=== PATIENT | female | born 1945 | race Two or more races ===

== ENCOUNTER 2017-09-11 18:26 | Inpatient (IN) | payer MEDICARE, BC ==
[~2017-09-11] VITALS: Ht 152.4 cm; Wt 63.5 kg
[~2017-09-11 18:26] MED LIST: ALLO100T PO; ASPI1CPM PO; CA C1TAB71 PO; DICY20TA11 PO; DICY20TA32 PO; GABA-534 PO; LEVE250T2 PO; MEGA RED; NEBI10TA2 PO; ONDA4TAB8 PO; PANCREAZE 21,01 EACH PO; TRAM50TA2 PO
--- NOTE | 2017-09-11 18:55 | NUR ---
BB FAMILY FOR FEELING WEAK, SHORT OF BREATH, POPOR APETITE. A/OX 4. BREATHING EVEN AND UNLABORED. NO SOB. VITALS STABLE. SAFETY AND COMFORT MEASURES IN PLACE. AWAITING MD ORDERS.
[2017-09-11] MEDS ORDERED: IV NS 0.9% 1,000 ML BAG IV ONE ×2 (19:00→21:30)
--- NOTE | 2017-09-11 19:05 | NUR ---
NEW IV STARTED ON LFA, 20 G.
--- NOTE | 2017-09-11 19:10 | NUR ---
FLAVORING OIL FILTERER AT BEDSIDE FOR BLOOD DRAW.
--- NOTE | 2017-09-11 19:19 | NUR ---
PATIENT MEDICATED PER MD ORDERS.
--- NOTE | 2017-09-11 19:30 | NUR ---
REPORT GIVEN TO SIDDHARTH ARSHAD FOR GENEVIEVE.
--- NOTE | 2017-09-11 19:30 | NUR ---
LAB AT BEDSIDE FOR BLOOD DRAW.
--- NOTE | 2017-09-11 19:30 | NUR ---
RECEIVED REPORT FROM JEANCARLOS LAZO
[2017-09-11 20:01] LABS: EOSINOPHILS # (AUTO) 0.1 /CMM (0.0-0.7); EOSINOPHILS % (AUTO) 0.7 % (0.0-6.0); LYMPHOCYTES # (AUTO) 2.1 /CMM (0.8-4.8)
--- NOTE | 2017-09-11 20:02 | NUR ---
MAIL FORWARDING SYSTEM MARKUP CLERK AT BEDSIDE.
[2017-09-11 20:05] LABS: BASOPHILS # (AUTO) 0.4 /CMM (0.0-0.2); BASOPHILS % (AUTO) 4.1 % (0.0-2.0); HEMATOCRIT 46 % (33-45); HEMOGLOBIN 15.6 g/dL (11.5-14.8); LYMPHOCYTES % (AUTO) 19.1 % (20.0-44.0); MEAN CORPUSCULAR HEMOGLOBIN 35 PG (26.0-33.0); MEAN CORPUSCULAR HGB CONC 34 g/dl (31.0-36.0); MEAN CORPUSCULAR VOLUME 104 fL (82-100); MONOCYTES # (AUTO) 0.9 /CMM (0.1-1.30); MONOCYTES % (AUTO) 7.9 % (2.0-12.0); NEUTROPHILS # (AUTO) 7.4 /CMM (1.8-8.9); NEUTROPHILS % (AUTO) 68.2 % (43.0-81.0); PLATELET COUNT (AUTO) 263 /CMM (150-450); RDW COEFFICIENT OF VARIATION 11.3 (11.5-15.0); RED BLOOD CELL COUNT(AUTO) 4.43 MIL/uL (4.0-5.2); WHITE BLOOD COUNT (AUTO) 10.9 K/uL (4.3-11.0)
[2017-09-11 20:15] LABS: CALCIUM, SERUM 8.5 mg/dL (8.5-10.1); CARBON DIOXIDE 20 mmol/L (21-32); CHLORIDE 100 mmol/L (98-107); CREATININE 1.8 mg/dL (0.6-1.3); GLUCOSE 300 mg/dL (74-106); INR 1.07 (0.87-1.13); POTASSIUM 3.7 mmol/L (3.5-5.1); PROTHROMBIN TIME 11.1 SECS (9.5-12.7); SODIUM SERUM 133 mmol/L (136-145); UREA NITROGEN, BLOOD 9 mg/dL (7-18)
[2017-09-11 20:21] LABS: ALANINE AMINOTRANSFERASE 68 U/L (12-78); ALBUMIN 1.9 g/dL (3.4-5.0); ALKALINE PHOSPHATASE 217 U/L (46-116); ASPARTATE AMINOTRANSFERASE 92 U/L (15-37); BILIRUBIN,DIRECT 0.2 mg/dL (0.0-0.2); BILIRUBIN,TOTAL 0.9 mg/dL (0.2-1.0); TOTAL PROTEIN, SERUM 6.5 g/dL (6.4-8.2)
[2017-09-11 20:24] LABS: TROPONIN I < 0.017 ng/mL (0.00-0.056)
--- NOTE | 2017-09-11 21:11 | NUR ---
CALLED AT [phone], TRANSFERRED CALL TO DR. BAXTER.
--- NOTE | 2017-09-11 21:12 | NUR ---
DR. BAXTER SPEAKING TO DR. MAGALLON REGARDING POC AND ADMISSION
--- NOTE | 2017-09-11 21:20 | NUR ---
TELE [id number]
[2017-09-11] MEDS ORDERED: LEVOFLOXACIN 750 MG /D5W 150ML 150 ML IV ONE (21:21)
[2017-09-11] MEDS ORDERED: LEVOFLOXACIN 750 MG /D5W 150ML PIGGYBACK IV ONE (21:30)
--- NOTE | 2017-09-11 21:44 | NUR ---
UNABLE TO COLLECT URINE AT THIS TIME. INFORMED DR. BAXTER
--- NOTE | 2017-09-11 21:53 | NUR ---
REPORT GIVEN TO JEANCARLOS BEJARANO FOR GENEVIEVE, ENDORSED RN TO COLLECT URINE. IVPB LEVAQUIN TRANSFUSING ON ADMISSION
--- NOTE | 2017-09-11 22:30 | NUR ---
PT TRANSFERRED PER ACLS PROTOCOL.
--- NOTE | 2017-09-11 22:45 | NUR ---
PATIENT FINANCIAL SPECIALIST NOTE: RECEIVED PATIENT FROM ER, NO ACUTE DISTRESS NOTED, FAMILY AT BEDSIDE. NO ACUTE DISTRESS NOTED. BREATHING EVEN AND UNLABORED, NO SOB NOTED. IV TO LFA IN PLACE. ORIENTED PATIENT TO ROOM AND USE OF CALL LIGHT. BED LOCKED AND IN LOWEST POSITION, CALL LIGHT IN REACH. WILL CONTINUE TO MONITOR.
[2017-09-11 23:25] VITALS: BP 163/84
[2017-09-11] MEDS: INSULIN DETEMIR 100 UNIT/ML CARTRIDGE SQ SCH (23:30)
[2017-09-11] MEDS ORDERED: BLOOD SUGAR DIAGNOSTIC 1 EACH STRIP VI SCH (23:30)
[2017-09-11] MEDS ORDERED: INSULIN REGULAR, HUMAN 100 UNIT/ML 3 ML VIAL SQ PRN (23:30)
[2017-09-11] MEDS: BLOOD SUGAR DIAGNOSTIC 1 EACH STRIP IN SCH (23:30)
[2017-09-11] MEDS ORDERED: INSULIN ASPART HUMALOG/NOVOLOG 100 UNIT/ML CARTRIDGE SQ PRN (23:30)
[2017-09-11] MEDS ORDERED: *INSULIN REGULAR(HUMULIN R)HUM 100 UNIT/ML VIAL SQ PRN (23:30)
[2017-09-11] MEDS ORDERED: DEXTROSE 50%-WATER 50 ML DISP.SYRIN IV PRN ×2 (23:30)
[2017-09-11 23:58] VITALS: BP 128/78
--- NOTE | 2017-09-12 00:05 | NUR ---
MARINE GEOLOGIST NOTE: CALLED PATIENT MD FOR ADMIT ORDERS. RECEIVED ORDERS TO CONTINUE ALL HOME MEDICATIONS, MODERATE SLIDING SCALE WITH NOVOLOG ACHS AND LEVEMIR 7 UNITS AT BEDTIME. ALSO RECEIVED ORDERS FOR FLUIDS AND LABS IN MORNING. NEW ORDER FOR PATIENT TO START TAMIFLU 75MG ORAL BID. ORDERS NOTED AND CARRIED OUT. WILL CONTINUE TO MONITOR.
--- NOTE | 2017-09-12 00:45 | NUR ---
ASSEMBLER FINAL NOTE: PATIENT BLOOD SUGAR LEVEL 300 MG/DL, PATIENT TO RECEIVE 7 UNITS OF LEVEMIR PER MD ORDER AND 8 UNITS OF INSULIN PER SLIDING SCALE. NO S/S OF HYPERGLYCEMIA NOTED. TELE READING SR 80. WILL CONTINUE TO MONITOR.
[2017-09-12] MEDS: IV 1/2NS 1000 ML 1,000 ML IV PRN ×2 (00:58→19:31)
[2017-09-12] MEDS: *INSULIN ASPART NOVOLOG 100 UNIT/ML CARTRIDGE SQ PRN ×2 (00:59→21:40)
[2017-09-12] MEDS ORDERED: INSULIN LISPRO/ASPART 100 UNIT/ML CARTRIDGE SQ ONE (01:04)
[2017-09-12] MEDS ORDERED: INSULIN DETEMIR 100 UNIT/ML CARTRIDGE SQ ONE (01:04)
[2017-09-12] MEDS ORDERED: TRAMADOL HCL 50 MG TABLET PO PRN ×2 (04:30→09:00)
[2017-09-12 05:09] VITALS: BP 134/80
[2017-09-12] MEDS ORDERED: TRAMADOL HCL 50 MG TABLET ONE (05:26)
[2017-09-12 06:32] LABS: CALCIUM, SERUM 7.3 mg/dL (8.5-10.1); CARBON DIOXIDE 22 mmol/L (21-32); CHLORIDE 107 mmol/L (98-107); CREATININE 1.7 mg/dL (0.6-1.3); GLUCOSE 197 mg/dL (74-106); POTASSIUM 3.5 mmol/L (3.5-5.1); SODIUM SERUM 138 mmol/L (136-145); UREA NITROGEN, BLOOD 9 mg/dL (7-18)
[2017-09-12 06:33] LABS: BASOPHILS # (AUTO) 0.1 /CMM (0.0-0.2); BASOPHILS % (AUTO) 1.6 % (0.0-2.0); EOSINOPHILS # (AUTO) 0.2 /CMM (0.0-0.7); HEMATOCRIT 36 % (33-45); HEMOGLOBIN 12.6 g/dL (11.5-14.8); LYMPHOCYTES % (AUTO) 25.1 % (20.0-44.0); MEAN CORPUSCULAR HEMOGLOBIN 36 PG (26.0-33.0); MEAN CORPUSCULAR HGB CONC 35 g/dl (31.0-36.0); MEAN CORPUSCULAR VOLUME 104 fL (82-100); MONOCYTES # (AUTO) 0.6 /CMM (0.1-1.30); MONOCYTES % (AUTO) 7.6 % (2.0-12.0); NEUTROPHILS % (AUTO) 63.7 % (43.0-81.0); PLATELET COUNT (AUTO) 211 /CMM (150-450); RDW COEFFICIENT OF VARIATION 12.4 (11.5-15.0); RED BLOOD CELL COUNT(AUTO) 3.49 MIL/uL (4.0-5.2); WHITE BLOOD COUNT (AUTO) 7.9 K/uL (4.3-11.0)
--- NOTE | 2017-09-12 06:45 | NUR ---
END USER CONSULTANT NOTE: PATIENT RESTING IN BED , NO ACUTE DISTRESS NOTED. NO ACUTE DISTRESS NOTED. BREATHING EVEN AND UNLABORED, NO SOB NOTED. IV TO LFA IN PLACE, INFUSING 1/2NS AT 100 ML/HR. PATIENT BLODO SUGAR LEVEL 216 MG/DL, TO RECEIVE 6 UNITS OF INSULIN PER SLIDING SCALE. BED LOCKED AND IN LOWEST POSITION, CALL LIGHT IN REACH. WILL ENDORSE TO DAY NURSE TO CONTINUE WITH PLAN OF CARE.
--- NOTE | 2017-09-12 07:27 | NUR ---
EVENT MARKETING MANAGER OPENING NOTES: RECEIVED PATIENT AWAKE IN BED IN NO ACUTE SIGNS OF DISTRESS WITH CAREGIVER AT BEDSIDE. A/O X3, SAME ABLE TO MAKE NEEDS KNOWN, DENIES PAIN OR DISCOMFORTS AT THIS TIME. ON ROOM AIR, BREATHING EVEN AND UNLABORED, NO SOB NOTED. PT ON TELE-MONITORING WITH CURRENT READING OF SR AND HR OF 76, NO C/O CHEST PAIN VOICED. IV ACCESS ON LFA INTACT AND PATENT, INFUSING 1/2 NS @ 100 ML/HR, NO SIGNS OF INFILTRATION NOTED. BLOOD SUGAR LEVEL 216 MG/DL, 6 UNITS OF INSULIN NOVOLIN GIVEN PER SLIDING SCALE. BED LOCKED AND IN LOWEST POSITION WITH SIDE-RAILS UP X2. CALL LIGHT IN REACH. WILL CONTINUE TO MONITOR.
[2017-09-12] MEDS: BLOOD SUGAR DIAGNOSTIC 1 EACH STRIP IN SCH ×4 (07:41→21:36)
[2017-09-12 08:00] VITALS: BP 141/76
[2017-09-12] MEDS: NICOTINE PATCH (21MG) 21 MG PATCH.TD24 TD SCH (08:22)
[2017-09-12] MEDS: OSELTAMIVIR PHOSPHATE 75 MG CAPSULE PO SCH ×2 (08:22→17:53)
[2017-09-12] MEDS ORDERED: ONDANSETRON 4 MG TAB.RAPDIS PO PRN (09:00)
[2017-09-12] MEDS ORDERED: HOME MED MISCELLANEOUS XX SCH (09:00)
[2017-09-12] MEDS ORDERED: [UNRECOGNIZED DRUG - REMARK] PO SCH (09:00)
[2017-09-12 09:39] LABS: APPEARANCE,URINE CLEAR (CLEAR); BILIRUBIN,URINE 1+ (NEGATIVE); BLOOD, URINE NEGATIVE Ery/uL (NEGATIVE); COLOR,URINE DARK YELLO (YELLOW); KETONES,URINE 1+ (NEGATIVE); LEUKOCYTE ESTERASE ,URINE TRACE (NEGATIVE); NITRITE, URINE NEGATIVE (NEGATIVE); PH,URINE 6.5 (5.0-8.0); PROTEIN,URINE 1+ mg/dl (NEGATIVE); UGLUCOSE TRACE mg/dL (NEGATIVE)
[2017-09-12] MEDS: AGGRENOX(ASA/DIPYRIDAMOLE) 1 CAP CPMP.12HR PO SCH (10:13)
[2017-09-12] MEDS: GABAPENTIN 300 MG CAPSULE PO SCH ×3 (10:13→17:53)
[2017-09-12] MEDS: LEVETIRACETAM (250 MG) 250 MG TABLET PO SCH ×3 (10:13→17:53)
[2017-09-12] MEDS: ALLOPURINOL 100 MG TABLET PO SCH (10:14)
[2017-09-12 10:17] LABS: BACTERIA,URINE Moderate /HPF (None Seen); RBC,URINE 0-2 /HPF (0-2); SQUAMOUS EPITHELIAL CELL,UR Moderate /HPF (None Seen)
[2017-09-12 10:19] LABS: HYALINE CASTS, URINE Few /LPF (None Seen); YEAST,URINE Rare /HPF (None Seen)
[2017-09-12 12:00] VITALS: BP 98/63
--- NOTE | 2017-09-12 12:35 | NUR ---
RN NOTES PATIENT NOTED WITH LOW B/S OF 34MG/DL AT 1153, RECHECKED IMMEDIATELY AND WAS 32MG/DL, PT DIDN'T SHOW SIGNS OF HYPOGLYCEMIA, STILL ALERT AND ORIENTED X3 ANSD VERBALLY RESPONSIVE, FAMILY FRIEND AT BEDSIDE. PRN D 50W INJECTION ADMINISTERED, ORANGE JUICE AND APPLE SAUCE GIVEN AND TOLERATED. RECHECKED B/S AFTER 15MINS AND WAS 171MG/DL. CALLED DR YE TEL # [phone] AND LEFT MESSAGE. AWAITING FOR RETURN CALL. PT REFUSED INSULIN COVERAGE. WILL CONTINUE TO MONITOR.
[2017-09-12] MEDS: LIPASE/PROTEASE/AMYLASE 1 EACH CAPSULE.DR PO SCH ×2 (13:38→17:54)
--- NOTE | 2017-09-12 13:44 | NUR ---
RN NOTES DR YE CAME AND ASEESS PT AND SAID THAT HE GOT THE MESSAGE REGARDING PT'S LOW BLOOD SUGAR AT LUNCH TIME. HE SAID TO GIVE SUPPLEMENTAL 02 VIA N/C @ 2LPM TO PT. WILL CONTINUE TO MONITOR
[2017-09-12] MEDS ORDERED: LEVOFLOXACIN (250MG) 250 MG TABLET PO SCH (15:00)
[2017-09-12] MEDS: DICYCLOMINE HCL 10 MG CAPSULE PO SCH ×2 (15:17→17:52)
[2017-09-12] MEDS ORDERED: PANTOPRAZOLE 40 MG TABLET.DR PO PRN (15:30)
[2017-09-12 16:00] VITALS: BP 126/92
--- NOTE | 2017-09-12 16:35 | NUR ---
RN NOTES PT C/O NUASEA AND VOMITTING, SAME COMPLAINED OF BURNING SENSATION ON THE STOMACH THIS AFTERNOON. MD MADE AWARE WITH ORDER TO GIVE PROTONIX 40MG TAB BID PRN. ZOFRAN TAB WAS ALSO GIVEN WITH RELIEF. PATIENT COMFORTABLY RESTING AT MODERATE HIGH BACKREST AT THIS TIME. SON AT BEDSIDE AND ASKED TO BRING HOME MED BYSTOLIC 10MG AND SAID HE WILL BRING IT. WILL CONTINUE TO MONITOR.
--- NOTE | 2017-09-12 17:50 | NUR ---
RN NOTES PATIENT WITH BLOOD SUGAR OF 143MGDL AT THIS TIME, SON AT BEDSIDE AND PT REFUSED NOVOLIN COVERAGE. WILL CONTINUE TO MONITOR.
--- NOTE | 2017-09-12 19:02 | NUR ---
ENGINEER SERGEANT CLOSING NOTES: PATIENT AWAKE AND COMFORTABLY RESTING IN BED WITH CAREGIVER AT BEDSIDE. IN BED IN NO ACUTE SIGNS OF DISTRESS WITH CAREGIVER AT BEDSIDE. A/O X3, VERBALLY RESPONSIVE. ALL NEEDS AND CARE ATTENDED WELL. ON SUPPLEMENTAL 02 VIA N/C AT 2LPM, BREATHING EVEN AND UNLABORED, NO SOB NOTED. PT ON TELE-MONITORING WITH CURRENT READING OF SR AND HR OF 88, NO C/O CHEST PAIN AT THIS TIME. IV ACCESS ON LFA INTACT AND PATENT WITH IVF OF 1/2 NS @ 100 ML/HR, NO SIGNS OF INFILTRATION NOTED. HOB KEPT ELEVATED. BED LOCKED AND IN LOWEST POSITION WITH SIDE-RAILS UP X2. CALL LIGHT IN REACH. WILL ENDORSED TO PAPER TUBE GRADER NURSE FOR GENEVIEVE..
--- NOTE | 2017-09-12 19:50 | NUR ---
METER READER INSPECTOR INITIAL NOTES PT IS IN BED RESTING, A.O X3 ABLE TO MAKE NEEDS KNOWN WITH CAREGIVER AT BEDSIDE. IV ACCESS INTACT AND PATENT WITH NO SIGNS OF INFILTRATION, INFUSING WITH 1/2 NS. DENIES PAIN AT THIS TIME. BED IS IN LOW AND LOCKED POSITION, CALL LIGHT WITHIN REACH. WILL CONTINUE TO MONITOR
[2017-09-12 20:00] VITALS: BP 142/79
[2017-09-12] MEDS: INSULIN DETEMIR 100 UNIT/ML CARTRIDGE SQ SCH (22:00)
[2017-09-13 04:00] VITALS: BP 155/90
[2017-09-13] MEDS: IV 1/2NS 1000 ML 1,000 ML IV PRN (06:32)
[2017-09-13] MEDS: BLOOD SUGAR DIAGNOSTIC 1 EACH STRIP IN SCH (06:32)
--- NOTE | 2017-09-13 06:47 | NUR ---
DISTRIBUTION ASSOCIATE CLOSING NOTES PT IS IN BED, ALERT AND AWAKE X3. ON NC 3L, BREATHING EVENLY AND UNLABORED. NO SIGNS OF SOB OR DISTRESS. TELE MONITOR SHOWS SR 93. PT REFUSED INSULIN THIS MORNING. IV FLUIDS ARE RUNNING AT 100 ML/HR. SITTER REMAINS AT BEDSIDE. BED IS IN LOW AND LOCKED POSITION, CALL LIGHT WITHIN REACH. WILL ENDORSE TO DAYSHIFT
[2017-09-13 06:55] VITALS: BP 146/88
[2017-09-13] MEDS: LIPASE/PROTEASE/AMYLASE 1 EACH CAPSULE.DR PO SCH (08:00)
--- NOTE | 2017-09-13 08:33 | NUR ---
PT IS CURRENTLY REFUSING ALL OF HER MORNING MEDICATIONS. STATES THAT THE NURSE GAVE HER SOMETHING YESTERDAY THAT MADE HER "FEEL WEIRD" SO SHE WILL WAIT TO TAKE THEM AT HOME. PT STATES SHE IS LEAVING AND WILL TAKE HER MORNING MEDICATIONS WHEN SHE GETS HOME.
[2017-09-13] MEDS: OSELTAMIVIR PHOSPHATE 75 MG CAPSULE PO SCH (09:00)
[2017-09-13] MEDS: GABAPENTIN 300 MG CAPSULE PO SCH (09:00)
[2017-09-13] MEDS: AGGRENOX(ASA/DIPYRIDAMOLE) 1 CAP CPMP.12HR PO SCH (09:00)
[2017-09-13] MEDS: DICYCLOMINE HCL 10 MG CAPSULE PO SCH (09:00)
[2017-09-13] MEDS: NICOTINE PATCH (21MG) 21 MG PATCH.TD24 TD SCH (09:00)
[2017-09-13] MEDS: LEVETIRACETAM (250 MG) 250 MG TABLET PO SCH (09:00)
[2017-09-13] MEDS: ALLOPURINOL 100 MG TABLET PO SCH (09:00)
[2017-09-13 10:04] LABS: CARBON DIOXIDE 22 mmol/L (21-32); CHLORIDE 102 mmol/L (98-107); CREATININE 1.6 mg/dL (0.6-1.3); GLUCOSE 256 mg/dL (74-106); POTASSIUM 4.2 mmol/L (3.5-5.1); SODIUM SERUM 135 mmol/L (136-145); UREA NITROGEN, BLOOD 8 mg/dL (7-18)
--- NOTE | 2017-09-13 10:07 | NUR ---
DISCHARGE INSTRUCTIONS GIVEN TO PATIENT AND ABLE TO UNDERSTAND. ALL PAPERWORK SIGNED AND BELONGINGS ACCOUNTED FOR. TO CALL IN PRESCRIPTIONS TO PHARMACY. PICTURES OF SKIN NOT NEEDED PATIENT SKIN IS INTACT. IV REMOVED AND PRESSURE APPLIED. NO BLEEDING NOTED AT THE SITE. FLU AND PNEUMONIA VACCINES NOT GIVEN THE PATIENT HAS ALREADY RECEIVED THEM. PATIENT LEFT IN STABLE CONDITION, VIA WHEEL CHAIR, TO HOME. NO SOB OR DISTRESS NOTED. PATIENT DENIES PAIN.
[2017-09-14] MEDS ORDERED: INSU100V11 SQ (18:57)
[2017-09-14] MEDS ORDERED: DICY10CA59 PO (18:57)
[2017-09-14] MEDS ORDERED: INSU100V7 SQ (18:57)
[2017-09-14] MEDS ORDERED: BLOO-668 IN (18:57)
[2017-09-14] MEDS ORDERED: MEGE40TA PO (18:58)
[2017-09-14] MEDS ORDERED: BUDE10.2 IH (18:58)
== END 2017-09-13 10:00 | disposition home or self-care (01) | DRG 872 ==
LOC: ER 18:30 → TELE 21:35
PROVIDERS: ADMIT Family Medicine; ATTEND Family Medicine
DX: A41.9 Sepsis, unspecified organism (principal); E11.65 Type 2 diabetes mellitus with hyperglycemia; G40.909 Epilepsy, unspecified, not intractable, without status epilepticus; N39.0 Urinary tract infection, site not specified; E86.0 Dehydration; F17.200 Nicotine dependence, unspecified, uncomplicated; I10 Essential (primary) hypertension; Z86.73 Personal history of transient ischemic attack (TIA), and cerebral infarction without residual deficits; Z79.4 Long term (current) use of insulin
CPT/HCPCS: 36415; 71010-TC; 80048-TC; 80076-TC; 81000-TC; 82962-TC; 83605-TC; 84484-TC; 85025-TC; 85730-TC; 86850-TC; 87040-TC; 87081-TC; 87086-TC; 87400; J1815; J1956; J3490; J7030; Q0162; Z7610

== ENCOUNTER 2017-09-14 17:12 | Inpatient (IN) | payer MEDICARE, BC ==
[~2017-09-14] VITALS: Ht 152.4 cm; Wt 66.7 kg
[~2017-09-14 17:12] MED LIST changes: -DICY20TA32 PO
--- NOTE | 2017-09-14 17:15 | NUR ---
[id number] from home: sob, hypoxia, pt alert, nad noted, vss, pt put on hospital gown and monitor. pt was on non rebreather 10L saturation 88, rt and md at , will continue to monitor
--- NOTE | 2017-09-14 17:47 | NUR ---
CALLED NURSING PRACTICE NURSE REQUESTING FOR A MIDLINE.
--- NOTE | 2017-09-14 18:06 | NUR ---
CALLED NURSING SUP. FOR ICU BED
--- NOTE | 2017-09-14 18:17 | NUR ---
PT PUT ON BIPAP, RT AT BS.
[2017-09-14 18:48] LABS: ABG BASE EXCESS -2.5 mmol/L; ABG OXYGEN SATURATION 77.4 % (92.0-98.5); ABG PCO2 27.7 mmHg (35.0-45.0); ABG PO2 40.9 mmHg (75.0-100.0); AaDO2 212.4 mmHg; COHb 1.3 % (0.5-1.5); MetHb 0.4 % (0.0-1.5); O2Hb 76.1 % (94.0-97.0); SITE, ABG Right Brachial; VENT MODE, BG venti mask40%
[2017-09-14] MEDS ORDERED: DICY10CA59 PO (18:57)
[2017-09-14] MEDS ORDERED: BLOO-668 IN (18:57)
[2017-09-14] MEDS ORDERED: INSU100V11 SQ (18:57)
[2017-09-14] MEDS ORDERED: INSU100V7 SQ (18:57)
[2017-09-14] MEDS ORDERED: BUDE10.2 IH (18:58)
[2017-09-14] MEDS ORDERED: MEGE40TA PO (18:58)
--- NOTE | 2017-09-14 19:04 | NUR ---
RECD PT WITH SOB SATTING 88% ON NON REBREATHER SWITCHED TO VENTI MASK WITH 50% O2 DUE TO COPD. ABG DRAWN REPORTED TO DR CHAVEZ. ASK TO PLACE ON BIPAP 29/01 50% RR 20 PATIENT'S SP02 IMPROVED TO 99% Addendum: 09/14/17 at 1907 by LILLIAM BECKMAN RT Amended: Links added.
[2017-09-14 20:32] LABS: ABG BASE EXCESS -3.9 mmol/L; ABG OXYGEN SATURATION 96.3 % (92.0-98.5); ABG PCO2 27.7 mmHg (35.0-45.0); ABG PH 7.447 (7.350-7.450); ABG PO2 88.2 mmHg (75.0-100.0); AaDO2 237.1 mmHg; COHb 0.9 % (0.5-1.5); MetHb 0.3 % (0.0-1.5); O2Hb 95.1 % (94.0-97.0); PEEP,BG 5 cm H2O; SITE, ABG Left Radial; VENT MODE, BG st 15/5 R20 50%
--- NOTE | 2017-09-14 20:38 | NUR ---
RT PT PLACED ON 15L 50% VENTI MASK PER CHAVEZ ORDERS POST ABG. NO SOB OR RESP DISTRESS NOTED.
[2017-09-14 20:55] LABS: HEMATOCRIT 43 % (33-45); HEMOGLOBIN 14.8 g/dL (11.5-14.8); MEAN CORPUSCULAR VOLUME 104 fL (82-100); RED BLOOD CELL COUNT(AUTO) 4.14 MIL/uL (4.0-5.2)
[2017-09-14 20:56] LABS: MEAN CORPUSCULAR HEMOGLOBIN 36 PG (26.0-33.0); MEAN CORPUSCULAR HGB CONC 34 g/dl (31.0-36.0); PLATELET COUNT (AUTO) 163 /CMM (150-450); RDW COEFFICIENT OF VARIATION 11.7 (11.5-15.0)
[2017-09-14 20:57] LABS: LYMPHOCYTES % (AUTO) 6.5 % (20.0-44.0); MONOCYTES % (AUTO) 4.4 % (2.0-12.0); NEUTROPHILS % (AUTO) 86.6 % (43.0-81.0)
[2017-09-14 20:58] LABS: BASOPHILS # (AUTO) 0.3 /CMM (0.0-0.2); EOSINOPHILS # (AUTO) 0.1 /CMM (0.0-0.7); EOSINOPHILS % (AUTO) 0.5 % (0.0-6.0); MONOCYTES # (AUTO) 0.7 /CMM (0.1-1.30); NEUTROPHILS # (AUTO) 12.7 /CMM (1.8-8.9)
[2017-09-14 21:00] LABS: WHITE BLOOD COUNT (AUTO) 14.8 K/uL (4.3-11.0)
[2017-09-14] MEDS ORDERED: CEFEPIME 1 GM VIAL IM STA (21:02)
[2017-09-14 21:03] LABS: CARBON DIOXIDE 21 mmol/L (21-32); CHLORIDE 100 mmol/L (98-107); SODIUM SERUM 133 mmol/L (136-145)
[2017-09-14 21:04] LABS: CALCIUM, SERUM 8.4 mg/dL (8.5-10.1); CREATININE 1.6 mg/dL (0.6-1.3); GLUCOSE 200 mg/dL (74-106); UREA NITROGEN, BLOOD 9 mg/dL (7-18)
[2017-09-14 21:05] LABS: ALANINE AMINOTRANSFERASE 38 U/L (12-78); ALBUMIN 1.7 g/dL (3.4-5.0); ALKALINE PHOSPHATASE 165 U/L (46-116); ASPARTATE AMINOTRANSFERASE 64 U/L (15-37); BILIRUBIN,DIRECT 0.3 mg/dL (0.0-0.2); BILIRUBIN,TOTAL 1.2 mg/dL (0.2-1.0); TROPONIN I 0.002 ng/mL (0.00-0.056)
[2017-09-14] MEDS ORDERED: VANCOMYCIN 1 GM in IV D5W 250 ML IV SCH (21:30)
[2017-09-14] MEDS ORDERED: CEFEPIME 1 GM VIAL ONE (21:33)
[2017-09-14] MEDS ORDERED: VANCOMYCIN 1 GM VIAL ONE (21:33)
--- NOTE | 2017-09-14 21:34 | NUR ---
CALLED DR GEORGE ON THE PHONE WITH DR CHAVEZ.
[2017-09-14] MEDS ORDERED: CEFEPIME 1 GM in IV D5W 50 ML IV STA (22:08)
--- NOTE | 2017-09-14 23:05 | NUR ---
SUPERVISOR INTELLIGENCE ANALYST: RECEIVED PATIENT A/O X 3 ADMITTED FROM ER FOR BILATERAL PNEUMONIA UNDER DR. JOSE MAIN. CURRENTLY ON VENTURI MASK AT 50% WT 02 SAT AT 92% AND ABOVE. NO ACUTE DISTRESS, NO C/O PAIN OR EVIDENCE OF DISCOMFORT. WITH BIPAP STANDING ORDERS NEEDED. AFEBRILE. SR ON LAWYER PROBATE. HOB AT 35 DEGREES. SAFETY PRECAUTION NOTED. CALL LIGHT WITHIN EASY REACH. WILL CONTINUE TO MONITOR.
[2017-09-14 23:20] VITALS: BP 132/67
[2017-09-14 23:30] VITALS: BP 118/66
[2017-09-14] MEDS ORDERED: DEXTROSE 50%-WATER 50 ML DISP.SYRIN IV PRN (23:30)
[2017-09-14] MEDS ORDERED: IPRATROPIUM NEB FS 0.5 MG/2.5 ML AMPUL.NEB NEB PRN (23:30)
[2017-09-14] MEDS ORDERED: *INSULIN REGULAR(HUMULIN R)HUM 100 UNIT/ML VIAL SQ PRN (23:30)
[2017-09-14] MEDS ORDERED: ALBUTEROL FS 2.5 MG/3 ML VIAL.NEB NEB PRN (23:30)
[2017-09-14] MEDS: ALBUTEROL FS 2.5 MG/3 ML VIAL.NEB NEB SCH (23:30)
[2017-09-14] MEDS: IPRATROPIUM NEB FS 0.5 MG/2.5 ML AMPUL.NEB NEB SCH (23:30)
[2017-09-14] MEDS ORDERED: INSULIN REGULAR, HUMAN 100 UNIT/ML 3 ML VIAL SQ PRN (23:30)
[2017-09-14] MEDS ORDERED: IV 1/2NS 1000 ML 1,000 ML IV SCH (23:30)
[2017-09-14 23:39] VITALS: BP 118/67
[2017-09-15] VITALS (28 sets, daily range): BP systolic 89–160; BP diastolic 40–94
[2017-09-15] MEDS ORDERED: methylPREDNISolone SOD SUCC 40 MG/ML VIAL ONE (00:10)
[2017-09-15] MEDS: methylPREDNISolone SOD SUCC 40 MG/ML VIAL IV SCH ×3 (00:11→12:28)
--- NOTE | 2017-09-15 02:00 | NUR ---
CALL CENTER RN: PT PLACED ON SIMPLE MASK AT 12L 02 SHE KEPT DESATURATING IN THE LOW 80s WITH VENTURI MASK DURING DEEP SLEEP. 02 SAT AT 92%. WILL CONTINUE TO MONITOR.
[2017-09-15] MEDS: IPRATROPIUM NEB FS 0.5 MG/2.5 ML AMPUL.NEB NEB SCH ×4 (03:31→19:52)
[2017-09-15] MEDS: ALBUTEROL FS 2.5 MG/3 ML VIAL.NEB NEB SCH ×4 (03:31→19:53)
--- NOTE | 2017-09-15 04:30 | NUR ---
BRICK KILN BURNER: PT. REFUSED AM LAB DRAW AT THIS TIME. SAID SHE WANTED TO SLEEP. NO GENEVIEVE. STILL AT 12L 02 VIA SIMPLE FACE MASK WT 02 SAT 91% AND ABOVE. NO ACUTE DISTRESS. DOES NOT WANT TO BE ON BIPAP. WILL CONTINUE TO MONITOR.
--- NOTE | 2017-09-15 06:45 | NUR ---
PT SITTER: STILL ON 12L 02 VIA SIMPLE FACE MASK. NO ACUTE DISTRESS. NO C/O PAIN. VS WITHIN HER BASELINE.
[2017-09-15] MEDS ORDERED: BLOOD SUGAR DIAGNOSTIC 1 EACH STRIP VI SCH (07:30)
[2017-09-15] MEDS ORDERED: BLOOD SUGAR DIAGNOSTIC 1 EACH STRIP IN SCH ×2 (07:30→12:00)
--- NOTE | 2017-09-15 07:58 | NUR ---
RN INITIAL NOTE RN RECEIVED THE PATIENT IN BED ON SIMPLE FACE MASK TOLERATING WELL, PATIENT IS A/OX4 ABLE TO MAKE NEEDS KNOWN PATIENT STATING NEED FOR KEPPRA STATES SHE TAKE KEPPRA Q MORNING. PATIENT REFUSED AM LABS. ADMISSIONS SUPERVISOR CAME BACK TO DRAW UNABLE TO DRAW LABS STATES SHE WILL SEND ANOTHER ADMISSIONS SUPERVISOR TO DRAW AM LABS SOON POSSIBLE, RN ASSESS PATIEN. PATIENT APPEARS ANXIOUS AT THIS TIME RN REASSURED PATIENT. PATIENT STABLE AT THIS TIME RN WILL CONTINUE TO MONITOR THROUGHOUT THE DAY , IV ACCESS CLEAN DRY AND INTACT
[2017-09-15] MEDS ORDERED: TRAMADOL HCL 50 MG TABLET PO PRN (08:00)
[2017-09-15] MEDS ORDERED: DEXTROSE 50%-WATER 50 ML DISP.SYRIN IV PRN (08:00)
[2017-09-15] MEDS: LEVETIRACETAM (250 MG) 250 MG TABLET PO SCH ×3 (08:34→17:00)
[2017-09-15] MEDS: ALLOPURINOL 100 MG TABLET PO SCH ×2 (08:35→09:00)
[2017-09-15] MEDS: GABAPENTIN 300 MG CAPSULE PO SCH ×4 (08:35→17:00)
[2017-09-15] MEDS: MEGESTROL ACETATE 40 MG TABLET PO SCH ×2 (08:35→09:00)
[2017-09-15] MEDS: AGGRENOX(ASA/DIPYRIDAMOLE) 1 CAP CPMP.12HR PO SCH (08:35)
[2017-09-15] MEDS: OSELTAMIVIR PHOSPHATE 75 MG CAPSULE PO SCH ×2 (08:38→17:00)
[2017-09-15] MEDS: ONDANSETRON 4 MG TAB.RAPDIS PO PRN ×2 (08:47→14:59)
[2017-09-15] MEDS ORDERED: [UNRECOGNIZED DRUG - REMARK] PO SCH (09:00)
[2017-09-15] MEDS: DICYCLOMINE HCL 10 MG CAPSULE PO SCH ×4 (09:00→17:00)
[2017-09-15] MEDS ORDERED: DICYCLOMINE HCL 10 MG CAPSULE PO SCH ×3 (09:00)
--- NOTE | 2017-09-15 09:30 | NUR ---
RN NOTE PATIENT REFUSED AM MEDICATION , STATING SHE IS NAUSEATED AND NEED EVERYONE TO UNDERSTAND THAT SHE IS TIRED OF BEING POKED WITH NEEDLES. PATIENT SON STATES HIS MOTHER TAKE HER MEDICATION IF YOU LEAVE IT FOR HER , PATIENT MEDICATION WILL BE OFFERED AT A LATER TIME
[2017-09-15 10:10] LABS: ABG OXYGEN SATURATION 91.8 % (92.0-98.5); ABG PCO2 21.5 mmHg (35.0-45.0); ABG PH 7.437 (7.350-7.450); ABG PO2 65.1 mmHg (75.0-100.0); AaDO2 339.1 mmHg; COHb 0.3 % (0.5-1.5); MetHb 0.8 % (0.0-1.5); O2Hb 90.8 % (94.0-97.0); SITE, ABG Right Radial; VENT MODE, BG 10L SM
--- NOTE | 2017-09-15 11:00 | NUR ---
RN NOTE PATIENT STILL REFUSING ORAL MEDICATION STATING SHE ONLY CAN TAKE MEDICATION AFTER SHE TAKE ZOFRAN PRN ZOFRAN IS ORDERED Q 6HRS AND HAS BEEN ADMINISTERED . NEXT DOSE AVAILABLE AT 3PM , PATIENT STATES SHE WILL TAKE THE KEPPRA AT THAT TIME.
--- NOTE | 2017-09-15 11:07 | NUR ---
RN note DELAY IN MEDICATION ADMINSTRATION DUE TO DRUG NOT BEING AVAILABLE, LABS TECH HAS SENT 5 TECHNICIANS TO DRAW BLOOD ALL FAIL ATTEMPTS PATIENT REFUSING TO RECEIVE LABS IF SHE MUST BE STUCK , PATIENT STATES " I NEEDS SOMEONE COMPETENT TO DRAW LABS" PATIENT HAS A MIDLINE WILL ASK CHARGE FOR A PICC LINE IF POSSIBLE
--- NOTE | 2017-09-15 11:12 | NUR ---
RT RESP TX HELD BECAUSE PATIENT PLACED ON NRB MASK FOR LOW PO2 WITH RAPID DESATURATION. B/S ARE CLEAR DIM BILAT. PATIENT DOES NOT COMPLAIN OF SOB.
[2017-09-15] MEDS: IV 1/2NS 1000 ML 1,000 ML IV PRN ×3 (12:00→21:57)
[2017-09-15] MEDS: INSULIN ASPART/LISPRO 100 UNIT/ML CARTRIDGE SQ PRN ×2 (12:41→18:05)
[2017-09-15] MEDS: NICOTINE PATCH (21MG) 21 MG PATCH.TD24 TD SCH (12:42)
[2017-09-15] MEDS: BLOOD SUGAR DIAGNOSTIC 1 EACH STRIP IN SCH ×3 (12:43→21:46)
[2017-09-15] MEDS ORDERED: DOSE PER PHARMACY (MD SPECIFY MEDICATION) 1 EA XX PRN (13:00)
[2017-09-15] MEDS: LEVOFLOXACIN 750 MG /D5W 150ML 750 MG in PREMIX 1 EA IV SCH (13:28)
--- NOTE | 2017-09-15 13:49 | NUR ---
RN NOTE PATIENT STILL REFUSING ORAL MEDICATION STATING SHE ONLY CAN TAKE MEDICATION AFTER SHE TAKE ZOFRAN PRN ZOFRAN IS ORDERED Q 6HRS AND HAS BEEN ADMINISTERED . NEXT DOSE AVAILABLE AT 3PM , PATIENT STATES SHE WILL TAKE THE KEPPRA AT THAT TIME. CHARGE NURSE HAS BEEN NOTIFIED RN WILL CONTINUE TO FOLLOW UP
--- NOTE | 2017-09-15 14:31 | NUR ---
rn note patient experienced sob and o2 desaturation customer care team coach removed non rebreather mask to administer lunch patient began to desaturate to the 50's patient is stable now no sob noted after reapplying the non rebreather
[2017-09-15 14:32] LABS: APPEARANCE,URINE SL CLOUDY (CLEAR); BILIRUBIN,URINE NEGATIVE (NEGATIVE); BLOOD, URINE TRACE-INTA Ery/uL (NEGATIVE); COLOR,URINE YELLOW (YELLOW); KETONES,URINE 1+ (NEGATIVE); LEUKOCYTE ESTERASE ,URINE NEGATIVE (NEGATIVE); NITRITE, URINE NEGATIVE (NEGATIVE); PROTEIN,URINE TRACE mg/dl (NEGATIVE); UGLUCOSE TRACE mg/dL (NEGATIVE); UROBILINOGEN,URINE 0.2 EU/dL (0.2)
[2017-09-15] MEDS: MENTHOL/CETYLPYRD (CEPACOL) 1 LOZ LOZENGE PO PRN (14:42)
[2017-09-15 16:14] LABS: BACTERIA,URINE 1+ /HPF (None Seen); WBC,URINE 0-2 /HPF (0-3)
[2017-09-15] MEDS: LIPASE/PROTEASE/AMYLASE 1 EACH CAPSULE.DR PO SCH ×2 (16:24→17:58)
--- NOTE | 2017-09-15 19:30 | NUR ---
FRUIT RECEIVER: RECEIVED A/O X 3. ON 12L 02 VIA NRM WT 02 SAT IN THE HIGH 80s TO 92%. WILL TITRATE 02 WILLIAM. SR ON METAL ALLOY SCIENTIST. AFEBRILE. NO C/O PAIN. ABLE TO MAKE NEEDS KNOWN. TOLERATING 1/2 NS AT 100CC/HR WT NO S/S OF INFILTRATION ON VANNESA MIDLINE. ABLE TO VOID ON BED THOMAS. HOB ELEVATED AT 45 DEGREES. SAFETY PRECAUTION NOTED. WILL CONTINUE TO MONITOR.
--- NOTE | 2017-09-15 19:37 | NUR ---
RN NOTE PATIENT FAMILY UPDATED ON THE PLAN OF CARE PATIENT IN BED STABLE WITHOUT ANY ISSUES PATIENT PATIENT EXPERIENCED SOME DESATURATION THROUGHOUT THE DAY RT HELP RN WITH SATURATION. PATIENT SON PROVIDED FOOD PATIENT STABLE. PATIENT SCIENTIST ENGINEER WILL RETURN AT 8PM. PATIENT CARE ENDORED TO PM RN
[2017-09-15] MEDS: INSULIN DETEMIR 100 UNIT/ML CARTRIDGE SQ SCH (21:43)
[2017-09-15] MEDS: *INSULIN ASPART NOVOLOG 100 UNIT/ML CARTRIDGE SQ PRN (21:47)
--- NOTE | 2017-09-15 23:00 | NUR ---
EQUIPMENT PROCESSER STORAGE: PLACED ON 15L 02 VIA NRM FOR DESATURATION IN THE 80s. WT GOOD EFFECT, 02 SAT GOES IN THE 90s TO 92%. WILL CONTINUE TO MONITOR.
[2017-09-16] VITALS (26 sets, daily range): BP systolic 81–168; BP diastolic 23–103
--- NOTE | 2017-09-16 01:00 | NUR ---
DECK HAND: PT DESATURATED WT 02 SAT 78% TO 81% WHILE IN DEEP SLEEP. STIMULATED AND WOKE UP PT AND OFFERED BIPAP SO THAT SHE GETS TO REST OR SLEEP STRAIGHT. PT. AGREED TO BE PLACED ON BIPAP SO SHE CAN REST. RT. CALLED.
--- NOTE | 2017-09-16 01:20 | NUR ---
BYPRODUCTS MAKER: PT WAS PLACED ON BIPAP MACHINE FOR 10 MINS. BUT STARTED FEELING NAUSEOUS AND COUGHED OUT SMALL AMT. OF THICK JOHNSON SECRETIONS. HOB HAS BEEN ON HIGH-ARIAS'S AT ALL TIMES. OFFERED ZOFRAN BUT REFUSED. PT SAID SHE CAN'T BE ON BIPAP AT THIS TIME AND NURSE WILL JUST HAVE TO WAKE HER UP IF SHE DESATURATES WHILE IN DEEP SLEEP. PLACED BACK ON 15L 02 VIA NRM. REMAINED A/O X 3. 02 SAT AT 92%. WILL CONTINUE TO MONITOR.
[2017-09-16] MEDS: ALBUTEROL FS 2.5 MG/3 ML VIAL.NEB NEB SCH ×4 (01:30→20:03)
[2017-09-16] MEDS: IPRATROPIUM NEB FS 0.5 MG/2.5 ML AMPUL.NEB NEB SCH ×4 (01:30→20:03)
--- NOTE | 2017-09-16 02:42 | NUR ---
pt placed on bipap per pt request with a epap of 10 due to pt complaint of too much pressure Addendum: 09/16/17 at 0245 by ANNY OBREGON Amended: Links added.
--- NOTE | 2017-09-16 03:45 | NUR ---
LOFTER: STILL ON BIPAP AT 10/ RR 20 AND FI02 100% WT 02 SAT 98%. PT WAS ONLY AT 90-91% AT FI02 50% AND HAD TO INCREASE FI02 SLOWLY UP TO 100% TO ATTAIN 02SAT 96% AND ABOVE. HOB ON HIGH-ARIAS'S. WILL CONTINUE TO MONITOR.
--- NOTE | 2017-09-16 04:00 | NUR ---
SLIP DUMPER: PT WANTED TO BE OFF BIPAP. PLACED BACK ON 15L 02 VIA NRM.
[2017-09-16 05:45] LABS: CARBON DIOXIDE 19 mmol/L (21-32); CHLORIDE 100 mmol/L (98-107); CREATININE 1.6 mg/dL (0.6-1.3); GLUCOSE 124 mg/dL (74-106); HEMATOCRIT 33 % (33-45); HEMOGLOBIN 11.5 g/dL (11.5-14.8); MAGNESIUM 1.5 mg/dL (1.8-2.4); MEAN CORPUSCULAR HEMOGLOBIN 36 PG (26.0-33.0); MEAN CORPUSCULAR HGB CONC 35 g/dl (31.0-36.0); MEAN CORPUSCULAR VOLUME 102 fL (82-100); PHOSPHORUS 2.9 mg/dL (2.5-4.9); PLATELET COUNT (AUTO) 202 /CMM (150-450); POTASSIUM 3.6 mmol/L (3.5-5.1); RDW COEFFICIENT OF VARIATION 11.9 (11.5-15.0); RED BLOOD CELL COUNT(AUTO) 3.25 MIL/uL (4.0-5.2); SODIUM SERUM 132 mmol/L (136-145); UREA NITROGEN, BLOOD 15 mg/dL (7-18); WHITE BLOOD COUNT (AUTO) 16.3 K/uL (4.3-11.0)
[2017-09-16 06:11] LABS: LYMPHOCYTES % (MANUAL) 10 % (16-48); MONOCYTES % (MANUAL) 6 % (0-11.0); NEUTROPHILS % (MANUAL) 84 (42-76)
--- NOTE | 2017-09-16 06:30 | NUR ---
ED TRANSPORTER: STILL WT EPISODES OF DESATURATING IN THE HIGH 80s WHEN IN DEEP SLEEP. 02 SAT GOES BACK TO 90-92% ONCE STIMULATED AND IS AWAKE. STILL AT 15L 02 VIA NRM. HOB ON HIGH ARIAS'S AT ALL TIMES.
[2017-09-16] MEDS: ONDANSETRON 4 MG TAB.RAPDIS PO PRN ×3 (07:02→17:31)
--- NOTE | 2017-09-16 07:05 | NUR ---
SHINGLE CARRIER: GIVEN ZOFRAN FOR NAUSEA. HOB AT 45 DEGREES AT ALL TIMES. ENDORSED TO DAY SHIFT FOR CONTINUITY OF CARE.
--- NOTE | 2017-09-16 07:30 | NUR ---
PATIENT SEEN IN BED, HOB ELEVATED. APPEARS SOB EVEN AT REST.TACHYNEIC 26-28. ON 100 % NRBM SPO2 91-92%. ENCOURAGED DEEP BREATHING.
[2017-09-16] MEDS: BLOOD SUGAR DIAGNOSTIC 1 EACH STRIP IN SCH ×4 (07:41→22:01)
--- NOTE | 2017-09-16 08:00 | NUR ---
PATIENT EASILY DESATS WHILE ASLEEP. EASILY AROUSABLE TO NAME. REFUSED BLOOD DRAWS. REFUSE BREAKFAST.
[2017-09-16] MEDS: NICOTINE PATCH (21MG) 21 MG PATCH.TD24 TD SCH (08:58)
[2017-09-16] MEDS: LIPASE/PROTEASE/AMYLASE 1 EACH CAPSULE.DR PO SCH ×3 (08:58→17:17)
[2017-09-16] MEDS: methylPREDNISolone SOD SUCC 40 MG/ML VIAL IV SCH (08:58)
[2017-09-16] MEDS: LEVETIRACETAM (250 MG) 250 MG TABLET PO SCH ×3 (08:59→17:20)
[2017-09-16] MEDS: AGGRENOX(ASA/DIPYRIDAMOLE) 1 CAP CPMP.12HR PO SCH (08:59)
[2017-09-16] MEDS: MEGESTROL ACETATE 40 MG TABLET PO SCH (08:59)
[2017-09-16] MEDS: DICYCLOMINE HCL 10 MG CAPSULE PO SCH ×3 (08:59→17:00)
[2017-09-16] MEDS: GABAPENTIN 300 MG CAPSULE PO SCH ×3 (09:00→17:00)
[2017-09-16] MEDS ORDERED: NICOTINE PATCH (21MG) 21 MG PATCH.TD24 TD SCH (09:00)
--- NOTE | 2017-09-16 09:00 | NUR ---
PATIENT REFUSED SCANNED MORNING MEDS. STATED WITH LET RN KNOW WHEN SHE WANTS TO TAKE THEM. FREQUENT EPISODES OF DESATURATION WHILE ASLEEP.
[2017-09-16] MEDS: ALLOPURINOL 100 MG TABLET PO SCH (09:03)
[2017-09-16] MEDS: IV 1/2NS 1000 ML 1,000 ML IV PRN (09:27)
[2017-09-16 09:45] LABS: INR 1.19 (0.87-1.13); PROTHROMBIN TIME 12.4 SECS (9.5-12.7)
--- NOTE | 2017-09-16 10:00 | NUR ---
PATIENT SEEN BY DR. MAIN. MADE AWARE OF LAB RESULTS. MAGNESIUM 1.5. NA 132. OREDERS RECEIVED. ALSO AWARE OF PATIENT REFUSING BLOOD DRAWS.
--- NOTE | 2017-09-16 10:06 | NUR ---
PT REFUSED KERI. DR. MAIN AWARE. Addendum: 09/16/17 at 1007 by ELBA MCGREGOR RT Amended: Links added.
--- NOTE | 2017-09-16 11:45 | NUR ---
PATIENT SEEN AND EXAMINED BY DR. BENSON SPOKE TO PATIENT REGARDING IMPORTANCE OF DRAWING ABG/PL;AN OF CARE. DC IVF AND GIVE LASIX 20 MG IVP ONCE.
[2017-09-16] MEDS ORDERED: NS 0.9% IV PRN (12:00)
[2017-09-16] MEDS ORDERED: Magnesium 1GM/D5W 100ML PREMIX 100 ML IV SCH (12:00)
[2017-09-16] MEDS ORDERED: FUROSEMIDE 20 MG/2 ML VIAL IV ONE (12:00)
[2017-09-16] MEDS ORDERED: FUROSEMIDE 20 MG/2 ML VIAL IV SCH (12:00)
[2017-09-16] MEDS ORDERED: MAGNESIUM IV PRN (12:00)
--- NOTE | 2017-09-16 12:30 | NUR ---
DIURESING WELL POST LASIX - TOO TIRED/ TOO SOB TO USE BEDPAN EACH TIME- REFUSED FC INSERTION. WANTS TO USE DIAPER INSTEAD.
--- NOTE | 2017-09-16 13:00 | NUR ---
ABG RESULTS GIVEN TO DR. IZAGUIRRE BY RT.
[2017-09-16] MEDS: Magnesium 1GM/D5W 100ML PREMIX 100 ML IV SCH ×4 (13:06→16:23)
[2017-09-16 13:36] LABS: ABG BASE EXCESS -2.9 mmol/L; ABG OXYGEN SATURATION 89.1 % (92.0-98.5); ABG PCO2 23.8 mmHg (35.0-45.0); ABG PH 7.506 (7.350-7.450); ABG PO2 52.7 mmHg (75.0-100.0); AaDO2 492.7 mmHg; MetHb 0.3 % (0.0-1.5); O2Hb 88.8 % (94.0-97.0); SITE, ABG Right Radial; VENT MODE, BG NRB
[2017-09-16] MEDS ORDERED: FUROSEMIDE 40 MG/4 ML VIAL IV ONE (14:30)
[2017-09-16] MEDS: POTASSIUM CL. PREMIX PERIPHER. 50 ML IV SCH ×2 (17:20→18:27)
--- NOTE | 2017-09-16 17:30 | NUR ---
PATIENT HAS BEEN REFUSING MEALS TODAY DESPITE ENCOURAGEMENT. BS AT NOON 59. GIVEN ORANGE JUICE. LATEST BS 176.
--- NOTE | 2017-09-16 18:30 | NUR ---
PATIENT INSULIN SLIDING SCALE HELD DUE TO PATIENT REFUSING DINNER. REMAINS ON 100% NRBM.
--- NOTE | 2017-09-16 19:30 | NUR ---
NAIL TECHNICIAN: PT RECEIVED A/O X3. STILL ON 15L 02 VIA NRM 02 SAT 92% AT THIS TIME. DESATURATES EASILY. HOB ON HIGH-ARIAS'S. ENCOURAGED TO TAKE DEEP BREATHING. AFEBRILE. SR ON BUSINESS SERVICES SALES AGENT. NO S/S OF INFILTRATION ON VANNESA MIDLINE. SAFETY PRECAUTION NOTED. CALL LIGHT KEPT WITHIN REACH.
--- NOTE | 2017-09-16 20:20 | NUR ---
DIRECTOR OF USER EXPERIENCE: CALLED AND NOTIFIED DR. GEORGE OF PT REQUESTING FOR MED D/T STOMACH UPSET. MD HICKS ORDER FOR MAALOX 30ML PO X 1 THEN PROTONIX 40MG IVP Q24H. NOTED AND CARRIED OUT.
[2017-09-16] MEDS ORDERED: MAG HYDROX/AL HYDROX/SIMETH 30 ML UDC ONE (20:25)
[2017-09-16] MEDS ORDERED: MAG HYDROX/AL HYDROX/SIMETH 30 ML UDC PO ONE (20:30)
--- NOTE | 2017-09-16 21:30 | NUR ---
FINISHER TAILOR APPRENTICE: REASSESSED PT AFTER GIVEN MAALOX WT GOOD EFFECT. PT VERBALIZED RELIEF FROM HAVING STOMACH UPSET. WILL CONTINUE TO MONITOR.
[2017-09-16] MEDS: *INSULIN ASPART NOVOLOG 100 UNIT/ML CARTRIDGE SQ PRN (22:02)
[2017-09-16] MEDS: INSULIN DETEMIR 100 UNIT/ML CARTRIDGE SQ SCH (22:58)
[2017-09-17] VITALS (26 sets, daily range): BP systolic 108–155; BP diastolic 63–93
[2017-09-17] MEDS: ALBUTEROL FS 2.5 MG/3 ML VIAL.NEB NEB SCH ×5 (01:30→20:57)
[2017-09-17] MEDS: IPRATROPIUM NEB FS 0.5 MG/2.5 ML AMPUL.NEB NEB SCH ×5 (01:30→20:57)
[2017-09-17] MEDS: ONDANSETRON 4 MG TAB.RAPDIS PO PRN ×3 (02:33→16:06)
[2017-09-17 06:12] LABS: B-TYPE NATRIURETIC PEPTIDE 18410 PG/ML (0-125); CALCIUM, SERUM 8.4 mg/dL (8.5-10.1); CARBON DIOXIDE 21 mmol/L (21-32); CHLORIDE 100 mmol/L (98-107); CREATININE 1.7 mg/dL (0.6-1.3); GLUCOSE 159 mg/dL (74-106); POTASSIUM 3.8 mmol/L (3.5-5.1); SODIUM SERUM 137 mmol/L (136-145); UREA NITROGEN, BLOOD 19 mg/dL (7-18)
--- NOTE | 2017-09-17 06:30 | NUR ---
MIRROR FINISHING MACHINE OPERATOR: BED BATH GIVEN TOLERATED FAIRLY. PT NOTED TO HAVE BETTER 02 SAT. DURING THE SHIFT 90% AND ABOVE AND ONLY FEW EPISODES OF 02 SAT BELOW 90%. VERBALIZED SHE FELT BETTER AND WAS ABLE TO REST. HOB ON HIGH ARIAS'S AT ALL TIMES.
--- NOTE | 2017-09-17 07:10 | NUR ---
RN NOTES RECEIVED PT ON BED, A/Ox3 , ON 15L 02 VIA NRM 02 SAT 90%-91%, NO DISTRESS NOTED AT THIS TIME , AFEBRILE. SR ON PROPERTY INSURANCE AGENT HR IN 80'S AT THIS TIME , VANNESA MIDLINE SITE CDI, SR UP x3, CALL LIGHT WITHIN EASY REACH, SAFETY PRECAUTION OBSERVED , BED LOCKED AND IN LOWEST POSITION , WILL CONTINUE TO MONITOR PT CLOSELY AND NOTIFY MD FOR ANY SIGNIFICANT CHANGES.
[2017-09-17] MEDS: LIPASE/PROTEASE/AMYLASE 1 EACH CAPSULE.DR PO SCH ×4 (08:00→18:00)
[2017-09-17] MEDS: BLOOD SUGAR DIAGNOSTIC 1 EACH STRIP IN SCH ×4 (08:23→21:05)
[2017-09-17] MEDS: NICOTINE PATCH (21MG) 21 MG PATCH.TD24 TD SCH ×2 (08:36→09:00)
[2017-09-17] MEDS: LEVETIRACETAM (250 MG) 250 MG TABLET PO SCH ×4 (08:36→16:46)
[2017-09-17] MEDS: ALLOPURINOL 100 MG TABLET PO SCH ×2 (08:36→09:00)
[2017-09-17] MEDS: MEGESTROL ACETATE 40 MG TABLET PO SCH ×2 (08:36→09:00)
[2017-09-17] MEDS: AGGRENOX(ASA/DIPYRIDAMOLE) 1 CAP CPMP.12HR PO SCH ×2 (08:37→09:00)
[2017-09-17] MEDS: methylPREDNISolone SOD SUCC 40 MG/ML VIAL IV SCH (08:37)
[2017-09-17] MEDS: GABAPENTIN 300 MG CAPSULE PO SCH ×4 (08:37→16:47)
[2017-09-17] MEDS: DICYCLOMINE HCL 10 MG CAPSULE PO SCH ×4 (08:41→16:46)
[2017-09-17] MEDS: PANTOPRAZOLE 40 MG VIAL IV SCH (09:27)
--- NOTE | 2017-09-17 09:45 | NUR ---
RN NOTES PT REFUSED MORNING MEDS ,EDUCATED PT HOW IMPORTANT IT IS TO FOLLOW THE PLAN OF CARE . PT STILL REFUSING TO TAKE HER MORNING MEDS . PT STATED THAT SHE WILL NOT TAKE ANY MEDIATION TILL LATER TODAY AND WANTS TO REST .
--- NOTE | 2017-09-17 10:00 | NUR ---
RN NOTE PT REFUSED ABG , DR IZAGUIRRE NOTIFIED .
[2017-09-17 10:51] LABS: BASOPHILS # (AUTO) 0.2 /CMM (0.0-0.2); EOSINOPHILS % (AUTO) 0.1 % (0.0-6.0); HEMATOCRIT 39 % (33-45); HEMOGLOBIN 13.2 g/dL (11.5-14.8); LYMPHOCYTES # (AUTO) 0.5 /CMM (0.8-4.8); LYMPHOCYTES % (AUTO) 3.8 % (20.0-44.0); MEAN CORPUSCULAR HEMOGLOBIN 35 PG (26.0-33.0); MEAN CORPUSCULAR HGB CONC 34 g/dl (31.0-36.0); MEAN CORPUSCULAR VOLUME 102 fL (82-100); MONOCYTES # (AUTO) 0.4 /CMM (0.1-1.30); NEUTROPHILS # (AUTO) 11.2 /CMM (1.8-8.9); NEUTROPHILS % (AUTO) 91.1 % (43.0-81.0); PLATELET COUNT (AUTO) 162 /CMM (150-450); RDW COEFFICIENT OF VARIATION 11.9 (11.5-15.0); WHITE BLOOD COUNT (AUTO) 12.3 K/uL (4.3-11.0)
[2017-09-17 11:21] LABS: LYMPHOCYTES % (MANUAL) 7 % (16-48); MONOCYTES % (MANUAL) 2 % (0-11.0); NEUTROPHILS % (MANUAL) 91 (42-76)
[2017-09-17] MEDS: LEVOFLOXACIN 750 MG /D5W 150ML 750 MG in PREMIX 1 EA IV SCH (12:17)
--- NOTE | 2017-09-17 13:00 | NUR ---
RN NOTES SUPPORTIVE FAMILY AT THE BEDSIDE . PT STILL REFUSING TO TAKE HER MEDS. EDUCATED THE PT REGARDING HOW IMPORTANT IT IS TO TAKE HER MED , PT STILL REFUSED
[2017-09-17] MEDS: methylPREDNISolone SOD SUCC 125 MG/2ML VIAL IV SCH ×2 (14:53→21:05)
[2017-09-17] MEDS: Budesonide/Formoterol Fumarate (Symbicort 160-4.5 Mcg In INH SCH (16:45)
--- NOTE | 2017-09-17 17:00 | NUR ---
JEANCARLOS NOTES PT TEAN ANY PAIN ON LEFT ARM AT THIS TIME. Addendum: 09/17/17 at 1832 by JOCE MARIN RN ABOVE CHARTING IS AT 17:15
--- NOTE | 2017-09-17 17:00 | NUR ---
RN NOTES PT C/O OF PAIN ON L WRIST , NO EDEMA NOTED TO THE L ARM , POSITIVE RADIAL PULSES , L ARM ELEVATED ON PILLOW , WARM COMPRESSED APPLIED, VSS STABLE , PT REFUSED TO TAKE PAIN MED , CONTINUE TO MONITOR .
--- NOTE | 2017-09-17 17:09 | NUR ---
PT PLACED ON 60% SIMPLE MASK FROM NRB MASK. PT UNABLE TO WILLIAM. CHANGE SPO2 DROPPED TO 80% PT PLACED BACK ON NRB MASK NURSING STAFF AWARE.
--- NOTE | 2017-09-17 18:53 | NUR ---
RN NOTES PT SLEEPING AT THIS TIME ,TENA ANY PAIN , O2 SAT 93%, CREATIVE WRITING PROFESSOR AT THE BEDSIDE, NO SIGNIFICANT CHANGES NOTED ON THIS SHIFT .
--- NOTE | 2017-09-17 19:30 | NUR ---
INFORMATION ASSURANCE ENGINEER INITIAL NOTE RECEIVED PT FROM JOCE ARSHAD. PT IN BED ON BIPAP, AT 1915 PT STARTED COMPLAINING OF SOB, BIPAP WAS PLACED. PT AGREED TO HAVING BIPAP. LUNG SOUNDS DIMINISHED. BOWEL SOUNDS PRESENT. IV PATENT AND INTACT. BED IN LOW LOCKED POSITION. CALL LIGHT WITHIN REACH. WILL CONTINUE TO MONITOR.
--- NOTE | 2017-09-17 20:40 | NUR ---
GREEN LUMBER GRADER PT DESATURATING ON 60% BIPAP. RT AWARE AND O2 CHANGES MADE. WILL CONTINUE TO MONITOR.
[2017-09-17] MEDS: INSULIN DETEMIR 100 UNIT/ML CARTRIDGE SQ SCH (21:06)
[2017-09-17] MEDS: INSULIN ASPART/LISPRO 100 UNIT/ML CARTRIDGE SQ PRN ×2 (21:09→21:14)
--- NOTE | 2017-09-17 21:10 | NUR ---
CASEWORK MANAGER PT BS 149, PT REFUSING SHORT ACTING INSULIN. ONLY WANTS LONG ACTING INSULIN. WILL CONTINUE TO MONITOR.
[2017-09-17] MEDS ORDERED: IV NS 0.9% 250 ML IV PRN (22:00)
[2017-09-18] VITALS (29 sets, daily range): BP systolic 98–160; BP diastolic 53–88
[2017-09-18] MEDS: ALBUTEROL FS 2.5 MG/3 ML VIAL.NEB NEB SCH ×4 (01:30→19:53)
[2017-09-18] MEDS: IPRATROPIUM NEB FS 0.5 MG/2.5 ML AMPUL.NEB NEB SCH ×4 (01:30→19:53)
[2017-09-18] MEDS: methylPREDNISolone SOD SUCC 125 MG/2ML VIAL IV SCH ×3 (04:21→21:37)
--- NOTE | 2017-09-18 06:20 | NUR ---
PUBLIC SERVICE OFFICER PT WAS TAKEN OFF BIPAP AT 0600 AND PLACED ON NRB 15L. AT 0620 PT REQUESTED TO BE PLACED BACK ONTO BIPAP. PT WAS SATING >92%. WILL CONTINUE TO MONITOR.
[2017-09-18] MEDS: BLOOD SUGAR DIAGNOSTIC 1 EACH STRIP IN SCH ×4 (07:30→21:38)
--- NOTE | 2017-09-18 07:59 | NUR ---
RN NOTES RECEIVED PT IN BED, AWAKE ALERT ORIENTED X3. ON BIPAP SATURATING 100%, SR ON MILK RECEIVER TANK TRUCK NOTED WITH TACHYPNEA. PLAN OF CARE DISCUSSED WITH PT, BUT PATIENT VERBALIZED SHE JUST ANTS TO SLEEP AND TO LET HER REST. PATIENT REFUSED BLOOD SUGAR CHECK AND AM MEDS, SHE SAID SHE WOULD ONLY WANT TO TAKE HER KEPRRA MED LATER. RISKS AND BENEFITS EXPLAINED, PT STILL REFUSED. KEPT COMFORTABLE, WILL MONITOR CLOSELY. CALL LIGHT WITHIN EASY REACH
[2017-09-18] MEDS: LIPASE/PROTEASE/AMYLASE 1 EACH CAPSULE.DR PO SCH ×3 (08:00→17:22)
--- NOTE | 2017-09-18 08:45 | NUR ---
RN NOTES [address]ZAGUIRRE, PER MD OBTAIN ABG ON BIPAP. UNIQUE RT AT BEDSIDE. 0825 ABG RESULTS RELAYED TO DR IZAGUIRRE; PH: [phone] PC02:28.7 P02:64.1 HCO3: 20.8, PER MD TO CHANGE SETTINGS TO 20/10 RATE OF 20 AND TITRATE FIO2. UNIQUE RT AT BEDSIDE. CHANGES MADE ON BIPAP 0844 DR IZAGUIRRE AT BEDSIDE, PT WAS SEEN AND EVALUATED. MD DISCUSSED PLAN OF CARE TO PATIENT. WILL KEEP PT ON BIPAP TODAY, PT VERBALIZED UNDERSTANDING. WILL MONITOR CLOSELY
[2017-09-18 08:46] LABS: ABG BASE EXCESS -1.6 mmol/L; ABG OXYGEN SATURATION 90.1 % (92.0-98.5); ABG PCO2 28.7 mmHg (35.0-45.0); ABG PH 7.479 (7.350-7.450); ABG PO2 64.1 mmHg (75.0-100.0); AaDO2 548.2 mmHg; COHb 0.3 % (0.5-1.5); MetHb 0.3 % (0.0-1.5); O2Hb 89.6 % (94.0-97.0); PEEP,BG 5 cm H2O; SITE, ABG Left Radial
--- NOTE | 2017-09-18 08:46 | NUR ---
RT NOTE BIPAP SETTINGS CHANGED PER MD IZAGUIRRE ORDER. PT NOW ON ST 06/07. FI02 TITRATED DOWN TO 50%. PT AWAKE AND ALERT. APPEARS COMFORTABLE. NO DISTRESS NOTED. Addendum: 09/18/17 at 0848 by UNIQUE GARCES RT Amended: Links added.
[2017-09-18] MEDS: ALLOPURINOL 100 MG TABLET PO SCH (09:00)
[2017-09-18] MEDS: MEGESTROL ACETATE 40 MG TABLET PO SCH (09:00)
[2017-09-18] MEDS: GABAPENTIN 300 MG CAPSULE PO SCH ×3 (09:00→17:00)
[2017-09-18] MEDS: DICYCLOMINE HCL 10 MG CAPSULE PO SCH ×3 (09:00→16:22)
[2017-09-18] MEDS: PANTOPRAZOLE 40 MG VIAL IV SCH (09:08)
[2017-09-18] MEDS: ONDANSETRON 4 MG TAB.RAPDIS PO PRN (09:42)
[2017-09-18] MEDS: NICOTINE PATCH (21MG) 21 MG PATCH.TD24 TD SCH (09:50)
[2017-09-18] MEDS: Budesonide/Formoterol Fumarate (Symbicort 160-4.5 Mcg In INH SCH ×2 (09:50→16:31)
--- NOTE | 2017-09-18 09:55 | NUR ---
RN NOTES ZOFRAN GIVEN PT C/O FEELING NAUSEATED
[2017-09-18] MEDS: LEVETIRACETAM (250 MG) 250 MG TABLET PO SCH ×3 (10:22→17:00)
--- NOTE | 2017-09-18 11:12 | NUR ---
RN NOTES PT REFUSED LAB DRAW
[2017-09-18] MEDS: FUROSEMIDE 40 MG/4 ML VIAL IV SCH ×2 (11:42→16:36)
--- NOTE | 2017-09-18 11:50 | NUR ---
RN NOTES LASIX 40MG IV GIVEN, OFFERED FC INSERTION TO PATIENT TO MONITOR URINE OUTPUT, PATIENT REFUSED. RISKS AND BENFITS EXPLAINED PT STRONGLY REFUSED
[2017-09-18] MEDS: ONDANSETRON HCL/PF 4 MG/2 ML VIAL IV PRN (14:05)
[2017-09-18] MEDS: AGGRENOX(ASA/DIPYRIDAMOLE) 1 CAP CPMP.12HR PO SCH (14:51)
--- NOTE | 2017-09-18 15:48 | NUR ---
RN NOTES PT IN BED, RESTING COMFORTABLY. ON O2@15LPM VIA NRB MASK, SATURATING 93-96%. DENIES PAIN AT THIS TIME. REFUSED HER AFTERNOON MEDS. PT ONLY WANT TO TAKE HER KEPPRA. SON AND CAREGIVER AT BEDSIDE. WILL CONT TO MONITOR CLOSELY
--- NOTE | 2017-09-18 15:51 | NUR ---
RT NOTE REMOVED PT OFF BIPAP PER PATIENT REQUEST. PT PLACED ON NON REBREATHER AT 15L FLOW. PT SATURATION 98%. PT AWAKE AND ALERT. APPEARS COMFORTABLE. RN NOTIFIED. Addendum: 09/18/17 at 1553 by UNIQUE GARCES RT Amended: Links added.
[2017-09-18] MEDS: INSULIN ASPART/LISPRO 100 UNIT/ML CARTRIDGE SQ PRN (17:28)
--- NOTE | 2017-09-18 17:59 | NUR ---
RT NOTE PT REMAINS ON NRB MASK AT 15L FLOW. BIPAP STANDBY. CAREGIVER AT BED SIDE. BIPAP PLUGGED IN TO RED OUTLET. AMBU BAG AT BED SIDE. NO DISTRESS NOTED. PT AWAKE AND ALERT. Addendum: 09/18/17 at 1801 by UNIQUE GARCES RT Amended: Links added.
--- NOTE | 2017-09-18 18:16 | NUR ---
RN NOTES SPOKE WITH DR MAIN, PT WAS SEEN AND EVALUATED. MD AWARE OF PT REFUSING HER MEDS AND LAB DRAW. PT IN BED RESTING COMFORTABLY ON O2 15L NRB. CAREGIVER AT BEDSIDE. NO DISTRESS NOTED. REFUSED TO BE TURNED AND REPOSITIONED, PT SAID SHE'S COMFORTABLE RIGHT NOW AND SHE WILL ASK THE NURSE IF SHE NEEDS TO BE REPOSITIONED. CAREGIVER AT BEDSIDE. WILL CLOSELY MONITOR
--- NOTE | 2017-09-18 19:00 | NUR ---
Received patient awake,alert on NRM 100% (15 L O2) ,converses,coherent and appropriate.With SOB even at rest gets worst on exertion.Refuses to turn to sides ,states she's tired and she wants to sleep and she's more comfortable on semi philippe's /supine position.Comfort care done,needs attended.
--- NOTE | 2017-09-18 20:30 | NUR ---
PT IS AWAKE AND ALERT ON NRB. RECEIVING Q6 BREATHING TX. BIPAP S/B ASKED PT IF SHE WANTS TO WEAR IT TONIGHT, SHE SAID NO. WILL CONTINUE TO MONITOR CLOSELY.
[2017-09-18] MEDS: INSULIN DETEMIR 100 UNIT/ML CARTRIDGE SQ SCH (23:30)
[2017-09-19] VITALS (24 sets, daily range): BP systolic 106–149; BP diastolic 52–86
--- NOTE | 2017-09-19 | NUR ---
[employer] SUPERVISOR NOTES Asleep ,Stable on NRM 100% ,o2 SAT 92%.Will continue to closely monitor respiratory status.
[2017-09-19] MEDS: IPRATROPIUM NEB FS 0.5 MG/2.5 ML AMPUL.NEB NEB SCH ×4 (01:30→19:46)
[2017-09-19] MEDS: ALBUTEROL FS 2.5 MG/3 ML VIAL.NEB NEB SCH ×4 (01:43→19:46)
--- NOTE | 2017-09-19 05:00 | NUR ---
CONE FORMER NOTES Awake,alert,breathing less labored .Refuses am bath ,states she wants to sleep some more,refuses to turn to sides too .
[2017-09-19] MEDS: methylPREDNISolone SOD SUCC 125 MG/2ML VIAL IV SCH ×3 (05:21→21:47)
[2017-09-19] MEDS: MENTHOL/CETYLPYRD (CEPACOL) 1 LOZ LOZENGE PO PRN (05:26)
--- NOTE | 2017-09-19 06:39 | NUR ---
EMPLOYEE RELATIONS ADVISOR NOTES .Remaions stable,asleep,RR=25-30 but non labored at rest/while asleep.O2 sat 92-94%.
[2017-09-19] MEDS: LIPASE/PROTEASE/AMYLASE 1 EACH CAPSULE.DR PO SCH ×3 (08:00→17:55)
--- NOTE | 2017-09-19 08:13 | NUR ---
TOY STUFFER NOTE RCVD PT AWAKE AND ALERT, SHOWING NO S/O DISTRESS, TOLERATING O2 VIA NRB MASK MARGINAL SATURATION 91%. SR ON TELE. IV SITES C/D/I/PATENT. NO S/O INFILTRATION/PHLEBITIS OBSERVED UPON FLUSHING. ACCU-CHECK DONE PT REFUSES PO AM MEDS AT THIS TIME. STATES THAT SHE DOESN'T TAKE INSULIN AND JUST WANTS TO SLEEP. RN OFFERED HER TO GIVE IV MEDS FOR NOW WHILE SHE RESTS, PT AGREED. WILL CONTINUE TO MONITOR PT FOR SAFETY AND COMFORT AND OFFER CLUSTER CARE TO PROMOTE REST. CALL LIGHT WITHIN REACH. BED IN LOW AND LOCKED POSITION. RT AT BEDSIDE PT REFUSED TO GO BACK ON BIPAP AND TO HAVE ABG DRAWN. DR. IZAGUIRRE INFORMED.
[2017-09-19] MEDS: BLOOD SUGAR DIAGNOSTIC 1 EACH STRIP IN SCH ×4 (08:38→21:48)
[2017-09-19] MEDS: FUROSEMIDE 40 MG/4 ML VIAL IV SCH ×2 (08:57→17:00)
[2017-09-19] MEDS: PANTOPRAZOLE 40 MG VIAL IV SCH (08:57)
[2017-09-19] MEDS: ONDANSETRON HCL/PF 4 MG/2 ML VIAL IV PRN (08:57)
[2017-09-19] MEDS: NICOTINE PATCH (21MG) 21 MG PATCH.TD24 TD SCH (08:58)
[2017-09-19] MEDS: GABAPENTIN 300 MG CAPSULE PO SCH ×3 (08:58→17:00)
[2017-09-19] MEDS: MEGESTROL ACETATE 40 MG TABLET PO SCH (08:58)
[2017-09-19] MEDS: LEVETIRACETAM (250 MG) 250 MG TABLET PO SCH ×3 (08:58→17:00)
[2017-09-19] MEDS: ALLOPURINOL 100 MG TABLET PO SCH (08:58)
[2017-09-19] MEDS: AGGRENOX(ASA/DIPYRIDAMOLE) 1 CAP CPMP.12HR PO SCH (08:58)
[2017-09-19] MEDS: DICYCLOMINE HCL 10 MG CAPSULE PO SCH ×3 (08:58→17:00)
[2017-09-19] MEDS: Budesonide/Formoterol Fumarate (Symbicort 160-4.5 Mcg In INH SCH ×2 (09:43→17:00)
[2017-09-19] MEDS: INSULIN ASPART/LISPRO 100 UNIT/ML CARTRIDGE SQ PRN (11:12)
[2017-09-19] MEDS: LEVOFLOXACIN 750 MG /D5W 150ML 750 MG in PREMIX 1 EA IV SCH (12:26)
--- NOTE | 2017-09-19 12:57 | NUR ---
ICU MEDICATION NOTE PT STILL TAKING AM DOSE FOR ORDERED MEDICATIONS THREE TIMES PER DAY.
[2017-09-19 13:15] LABS: BASOPHILS # (AUTO) 0.1 /CMM (0.0-0.2); BASOPHILS % (AUTO) 0.5 % (0.0-2.0); HEMATOCRIT 33 % (33-45); HEMOGLOBIN 11.3 g/dL (11.5-14.8); LYMPHOCYTES # (AUTO) 0.3 /CMM (0.8-4.8); LYMPHOCYTES % (AUTO) 2.4 % (20.0-44.0); MEAN CORPUSCULAR HEMOGLOBIN 35 PG (26.0-33.0); MEAN CORPUSCULAR HGB CONC 34 g/dl (31.0-36.0); MEAN CORPUSCULAR VOLUME 103 fL (82-100); MONOCYTES # (AUTO) 0.5 /CMM (0.1-1.30); MONOCYTES % (AUTO) 4.3 % (2.0-12.0); NEUTROPHILS % (AUTO) 92.8 % (43.0-81.0); RDW COEFFICIENT OF VARIATION 12.4 (11.5-15.0); WHITE BLOOD COUNT (AUTO) 12.9 K/uL (4.3-11.0)
--- NOTE | 2017-09-19 13:30 | NUR ---
RT RESP HHN TX HELD. PATIENT ON A NRB MASK AND DESATURATES VERY RAPIDLY NABLE TO TOLERATE TX. B/S DIM. NO COMPLAINTS OF SOB AT THIS TIME. JEANCARLOS PRASAD NOTIFIED
[2017-09-19 13:41] LABS: CARBON DIOXIDE 21 mmol/L (21-32); CHLORIDE 99 mmol/L (98-107); CREATININE 2.2 mg/dL (0.6-1.3); MAGNESIUM 1.9 mg/dL (1.8-2.4); SODIUM SERUM 140 mmol/L (136-145); UREA NITROGEN, BLOOD 35 mg/dL (7-18)
[2017-09-19 13:43] LABS: GLUCOSE 359 mg/dL (74-106)
[2017-09-19 13:44] LABS: BAND % (MANUAL) 1 % (0.0-5.0); LYMPHOCYTES % (MANUAL) 4 % (16-48); MONOCYTES % (MANUAL) 5 % (0-11.0); NEUTROPHILS % (MANUAL) 90 (42-76)
[2017-09-19 13:49] LABS: PLATELET COUNT (AUTO) 70 /CMM (150-450)
--- NOTE | 2017-09-19 14:07 | NUR ---
SPRAYER HAND NOTE RCVD CALL FROM LAB WITH 359 RESULT, ACCUCHECK DONE 388. DR. MAIN'S OFFICE CALLED SPOKE WITH JOSE WHO WILL PAGE . WILL F/U Addendum: 09/19/17 at 1410 by WIL MINOR RN ADDENDUM DR. NELSON CONTACTED REGARDING PT'S LOW K. RCVD ORDER TO REPLACE Alfonso THRASHER AWARE OF BUN/CREA TRENDING UP.
--- NOTE | 2017-09-19 14:31 | NUR ---
AUTOMOBILE LEASING SUPERVISOR NOTE NO CALL BACK FROM DR. MAIN, OFFICE CALLED AGAIN. WILL F/U
--- NOTE | 2017-09-19 14:39 | NUR ---
INTERNAL GRINDER NOTE RCVD CALL FROM DR. MAIN HE RECOMMENDED TO GIVE PT 15 UNITS NOVOLOG AND ORDER LACTIC ACID AND SERUM KETONES. ORDERS PLACED AND ACKNOWLEDGED.
[2017-09-19] MEDS ORDERED: INSULIN ASPART/LISPRO 100 UNIT/ML CARTRIDGE SQ ONE (15:00)
[2017-09-19] MEDS: POTASSIUM CL. PREMIX PERIPHER. 50 ML IV SCH ×2 (15:56→17:40)
--- NOTE | 2017-09-19 16:12 | NUR ---
RADIO TESTER NOTE RCVD CRITICAL LAB LACTIC ACID 4.1 DR[address] IZAGUIRRE IN UNIT INFORMED NO NEW ORDERS RCVD.
[2017-09-19] MEDS ORDERED: IV 1/2NS 1000 ML 1,000 ML IV ONE (17:30)
--- NOTE | 2017-09-19 17:56 | NUR ---
OIL WELL LOGGER NOTE PT PLACED BACK ON BIPAP, PT HAS BEEN WORKING VERY HARD TO BREATHE AND REFUSING BIPAP DURING SHIFT. PT'S SON AT BEDSIDE AWARE AND INFORMED THAT PT MIGHT NEED TO GET INTUBATED AT SOME POINT IF HER BREATHING DOESN'T IMPROVE. PT AGREED TO BE PLACED ON BIPAP. RT CALLED TO BEDSIDE TO PLACE PT BACK. PT'S ACCU-CHECK 36, D50% GIVEN THEN BLOOD GLUCOSE RAISED TO OVER 350. WILL CONTINUE TO MONITOR PT.
--- NOTE | 2017-09-19 18:24 | NUR ---
TECHNICAL APPLICATIONS SPECIALIST NOTE PT ON BIPAP TOLERATING WELL, PT REMAINS ALERT/ORIENTED, SR ON TELE. VANNESA MIDLINE CHANGED TO PICC. VOIDING TO DIAPER. [address] MAIN AWARE. PT REMAINS STABLE SHOWING NO S/O DISTRESS/PAIN AT THIS TIME. PT'S CARE WILL BE ENDORSED TO DAYCARE ASSISTANT RN FOR CONTINUITY OF CARE.
--- NOTE | 2017-09-19 19:00 | NUR ---
TREATMENT COUNSELOR NOTE -Received patient awake,alert on BIPAP @ 20/10 ,rate=20, Fio2 100%.,but patient already complaining about the BIPAP,wants to take it off.had new PICC line inserted today via VANNESA with IV fluid 1/2 NSS..Still c/o SOB with on and off labored breathing,worst on exertion.comfort care done,needs attended,refuses to turn to sides.Maintained HOB elevated. 0800 Patient took off BIPAP mask,does not want it back,placed back patient on NRM 100% (15 liters).
[2017-09-19 19:24] LABS: BILIRUBIN,DIRECT 0.2 mg/dL (0.0-0.2); BILIRUBIN,TOTAL 0.6 mg/dL (0.2-1.0)
--- NOTE | 2017-09-19 19:45 | NUR ---
DIRECTOR OF REIMBURSEMENT NOTES ,.Called Dr. Arthur to relay lactic acid result ,did not answer ,left message on voice mail.
[2017-09-19] MEDS: INSULIN DETEMIR 100 UNIT/ML CARTRIDGE SQ SCH (23:32)
[2017-09-20] VITALS (25 sets, daily range): BP systolic 100–142; BP diastolic 53–76
--- NOTE | 2017-09-20 | NUR ---
PIANO CASE MAKER NOTES Tolerating NRM 100% no episode of SOB,stable,PM care done,skin intact.Refuses to turn to sides.
[2017-09-20] MEDS: IPRATROPIUM NEB FS 0.5 MG/2.5 ML AMPUL.NEB NEB SCH ×4 (00:48→19:15)
[2017-09-20] MEDS: ALBUTEROL FS 2.5 MG/3 ML VIAL.NEB NEB SCH ×4 (00:48→19:15)
--- NOTE | 2017-09-20 04:00 | NUR ---
PRESSURE TESTER NOTES Asleep ,stable,breathing regular,less labored but still desaturates when O2 mask is off.Will continue to closely monitor.
[2017-09-20] MEDS: methylPREDNISolone SOD SUCC 125 MG/2ML VIAL IV SCH ×3 (05:29→21:05)
[2017-09-20 05:34] LABS: BASOPHILS # (AUTO) 0.4 /CMM (0.0-0.2); BASOPHILS % (AUTO) 2.6 % (0.0-2.0); HEMATOCRIT 32 % (33-45); HEMOGLOBIN 10.9 g/dL (11.5-14.8); LYMPHOCYTES # (AUTO) 0.4 /CMM (0.8-4.8); LYMPHOCYTES % (AUTO) 2.7 % (20.0-44.0); MEAN CORPUSCULAR HEMOGLOBIN 35 PG (26.0-33.0); MEAN CORPUSCULAR HGB CONC 34 g/dl (31.0-36.0); MEAN CORPUSCULAR VOLUME 102 fL (82-100); MONOCYTES # (AUTO) 0.3 /CMM (0.1-1.30); MONOCYTES % (AUTO) 1.8 % (2.0-12.0); NEUTROPHILS # (AUTO) 13.3 /CMM (1.8-8.9); NEUTROPHILS % (AUTO) 92.9 % (43.0-81.0); RDW COEFFICIENT OF VARIATION 11.9 (11.5-15.0); RED BLOOD CELL COUNT(AUTO) 3.13 MIL/uL (4.0-5.2); WHITE BLOOD COUNT (AUTO) 14.4 K/uL (4.3-11.0)
[2017-09-20 05:38] LABS: CALCIUM, SERUM 7.5 mg/dL (8.5-10.1); CARBON DIOXIDE 26 mmol/L (21-32); CHLORIDE 98 mmol/L (98-107); CREATININE 1.9 mg/dL (0.6-1.3); GLUCOSE 323 mg/dL (74-106); MAGNESIUM 1.6 mg/dL (1.8-2.4); POTASSIUM 3.9 mmol/L (3.5-5.1); SODIUM SERUM 133 mmol/L (136-145); UREA NITROGEN, BLOOD 35 mg/dL (7-18)
[2017-09-20 05:52] LABS: PLATELET COUNT (AUTO) 47 /CMM (150-450)
--- NOTE | 2017-09-20 06:00 | NUR ---
GAME ROOM ATTENDANT NOTES lab called for platelet of 47 ( from 70 yesterday),text message sent to Dr. Arthur to relay drop in platelet.
[2017-09-20 06:18] LABS: LYMPHOCYTES % (MANUAL) 3 % (16-48); MONOCYTES % (MANUAL) 2 % (0-11.0); NEUTROPHILS % (MANUAL) 95 (42-76)
--- NOTE | 2017-09-20 07:32 | NUR ---
ICU NOTE RECEIVED PT FROM PM NURSE. PT STABLE NO C/O OF SOB RESTING COMFORTABLY IN BED. ALL SAFETY MEASURES IN PLACE. WILL CONTINUE TO MONITOR CLOSELY.
--- NOTE | 2017-09-20 07:51 | NUR ---
ICU NOTE BS TAKEN 319. PT REFUSING INSULIN COVERAGE.
[2017-09-20] MEDS: LIPASE/PROTEASE/AMYLASE 1 EACH CAPSULE.DR PO SCH ×3 (08:00→18:00)
--- NOTE | 2017-09-20 08:00 | NUR ---
ICU NOTE PT REFUSING TO TAKE MORNING MEDICATION C/O OF DRY THROAT. OFFERED THROAT LYSOGEN DECLINED.
[2017-09-20] MEDS: ONDANSETRON HCL/PF 4 MG/2 ML VIAL IV PRN (08:08)
[2017-09-20] MEDS: BLOOD SUGAR DIAGNOSTIC 1 EACH STRIP IN SCH ×4 (08:08→22:34)
[2017-09-20] MEDS: Magnesium 1GM/D5W 100ML PREMIX 100 ML IV SCH ×2 (08:32→09:43)
[2017-09-20] MEDS: AGGRENOX(ASA/DIPYRIDAMOLE) 1 CAP CPMP.12HR PO SCH (09:00)
[2017-09-20] MEDS: DICYCLOMINE HCL 10 MG CAPSULE PO SCH ×4 (09:00→18:09)
[2017-09-20] MEDS: MEGESTROL ACETATE 40 MG TABLET PO SCH (09:00)
[2017-09-20] MEDS: LEVETIRACETAM (250 MG) 250 MG TABLET PO SCH ×4 (09:00→18:09)
[2017-09-20] MEDS: ALLOPURINOL 100 MG TABLET PO SCH (09:00)
[2017-09-20] MEDS: PANTOPRAZOLE 40 MG VIAL IV SCH (09:00)
[2017-09-20] MEDS: NICOTINE PATCH (21MG) 21 MG PATCH.TD24 TD SCH ×2 (09:00→13:17)
[2017-09-20] MEDS: GABAPENTIN 300 MG CAPSULE PO SCH ×3 (09:00→16:34)
[2017-09-20] MEDS: Budesonide/Formoterol Fumarate (Symbicort 160-4.5 Mcg In INH SCH ×2 (09:00→16:34)
--- NOTE | 2017-09-20 10:02 | NUR ---
ICU NOTE PT STILL REFUSING MORNING MEDICATION. PT STATED WILL TAKE LATER.
--- NOTE | 2017-09-20 10:02 | NUR ---
RT NOTE PT RECEIVED ON NRB MASK AT 15L FLOW. PT AWAKE AND ALERT. PT REFUSES BIPAP UPON QUESTIONING. SNAILER AT BED SIDE. NO DISTRESS NOTED. WILL CONTINUE TO MONITOR. Addendum: 09/20/17 at 1004 by UNIQUE GARCES RT Amended: Links added.
--- NOTE | 2017-09-20 10:27 | NUR ---
ICU NOTE PT REFUSED TURN AND REPOSITIONING WELL LOVE CARE AND DIAPER CHANGE. CAREGIVER @ BEDSIDE. REFUSED MORNING MEDICATIONS
--- NOTE | 2017-09-20 11:00 | NUR ---
ICU NOTE CALLED DR. MAIN. PT C/O THROAT PAIN REQUESTING SPRAY. DR. MAIN ORDERED CHLORASEPTIC SPRAY.
[2017-09-20] MEDS ORDERED: PHENOL/SODIUM PHENOLATE 1 BOTTLE MM PRN (11:30)
[2017-09-20] MEDS: INSULIN ASPART/LISPRO 100 UNIT/ML CARTRIDGE SQ PRN ×2 (11:49→16:32)
--- NOTE | 2017-09-20 11:55 | NUR ---
ICU NOTE CALLED DR MAIN REPORTED LACTIC ACID 2.1 AND BS 405 INSULIN GIVEN 15 UNITS. CHARGE NURSE KANDI ARSHAD AWARE.
--- NOTE | 2017-09-20 12:28 | NUR ---
RN NOTES DR MAIN AND DR IZAGUIRRE NOTIFIED REGARDING LA=4.0, NEW ORDER RECEIVED FROM DR IZAGUIRRE FOR 500CC NS BOLUS x1 THEN CONTINUOUS IVF NS AT 75CC/HR AND LA LEVEL IN AM . Addendum: 09/20/17 at 1534 by JOCE MARIN RN CORRECT TIME IS 15:28 , PLEASE DISREGARD ABOVE TIME
--- NOTE | 2017-09-20 14:30 | NUR ---
RN NOTES RECEIVED PT IN ROOM 254 , A/Ox3-4, ON NONREBREATHER MASK AT 15L O2, O2 SAT 91-92%, ON TELE SR , NO DISTRESS NOTED, COMPUTER TERMINAL OPERATOR AT THE BEDSIDE, R UPPER ARM PICC LINE CDI, SR UP x3, CALL LIGHT WITHIN EASY REACH, CONTINUE TO MONITOR .
--- NOTE | 2017-09-20 15:29 | NUR ---
RN NOTES PT'S SON STATED WILL BRING BYSTSP FROM HOME IN AM
[2017-09-20] MEDS ORDERED: IV NS 0.9% 1,000 ML BAG IV PRN (15:30)
[2017-09-20] MEDS ORDERED: IV NS 0.9% 500 ML IV ONE (15:30)
--- NOTE | 2017-09-20 16:17 | NUR ---
RN NOTES SUPPORTIVE FAMILY AT THE BEDSIDE , IVF NS BOLUS RUNNING VIA R UPPER ARM PICC LINE , CONTINUE TO MONITOR .
[2017-09-20] MEDS: IV NS 0.9% 1,000 ML IV PRN (16:26)
[2017-09-20] MEDS: OSELTAMIVIR PHOSPHATE 75 MG CAPSULE PO SCH (16:33)
--- NOTE | 2017-09-20 16:36 | NUR ---
RN NOTES PT REFUSED HER 1700 MEDS , EDUCATED PT REGRADING HOW IMPORTANT IT IS TO FOLLOW THE PLAN OF CARE , PT STILL REFUSED .
--- NOTE | 2017-09-20 18:00 | NUR ---
RN NOTES VSS STABLE , PT WANTS HER [place] AND SUE AT THIS TIME , SR UP x3, CALL LIGHT WITHIN EASY REACH, FAMILY STILL AT THE BEDSIDE , RT NOTIFIED REGARDING SPUTUM CULTURE, WILL ENDORSE TO CREDIT PROFESSIONAL NURSER FOR GENEVIEVE .
[2017-09-20] MEDS: CEFEPIME 1 GM in IV D5W 50 ML IV SCH (18:51)
--- NOTE | 2017-09-20 19:22 | NUR ---
PT PLACED ON BIPAP 15/5 F20, 100% DUE TO SOB AND DESATURATION. PT APPEARS TO BE TOLERATING WELL. BIPAP PLUGGED INTO RED OUTLET. AMBU BAG AT BEDSIDE. WILL CONTINUE TO MONITOR. Addendum: 09/20/17 at 1924 by CONSTANCE MICHAEL RT Amended: Links added.
[2017-09-20] MEDS: DOXYCYCLINE HYCLATE (100 MG) 100 MG TABLET PO SCH (21:05)
[2017-09-20] MEDS: *INSULIN ASPART NOVOLOG 100 UNIT/ML CARTRIDGE SQ PRN (22:36)
[2017-09-20] MEDS: INSULIN DETEMIR 100 UNIT/ML CARTRIDGE SQ SCH (22:37)
[2017-09-21] VITALS (23 sets, daily range): BP systolic 97–131; BP diastolic 60–79
[2017-09-21] MEDS: ALBUTEROL FS 2.5 MG/3 ML VIAL.NEB NEB SCH ×4 (01:11→19:56)
[2017-09-21] MEDS: IPRATROPIUM NEB FS 0.5 MG/2.5 ML AMPUL.NEB NEB SCH ×4 (01:11→19:57)
[2017-09-21 05:26] LABS: BASOPHILS # (AUTO) 0.6 /CMM (0.0-0.2); BASOPHILS % (AUTO) 3.9 % (0.0-2.0); EOSINOPHILS % (AUTO) 0.1 % (0.0-6.0); HEMATOCRIT 31 % (33-45); LYMPHOCYTES # (AUTO) 0.5 /CMM (0.8-4.8); LYMPHOCYTES % (AUTO) 3.2 % (20.0-44.0); MEAN CORPUSCULAR HEMOGLOBIN 36 PG (26.0-33.0); MEAN CORPUSCULAR HGB CONC 36 g/dl (31.0-36.0); MEAN CORPUSCULAR VOLUME 101 fL (82-100); MONOCYTES # (AUTO) 0.4 /CMM (0.1-1.30); MONOCYTES % (AUTO) 2.5 % (2.0-12.0); NEUTROPHILS # (AUTO) 13.9 /CMM (1.8-8.9); NEUTROPHILS % (AUTO) 90.3 % (43.0-81.0); RDW COEFFICIENT OF VARIATION 11.8 (11.5-15.0); RED BLOOD CELL COUNT(AUTO) 3.03 MIL/uL (4.0-5.2); WHITE BLOOD COUNT (AUTO) 15.4 K/uL (4.3-11.0)
[2017-09-21] MEDS: methylPREDNISolone SOD SUCC 125 MG/2ML VIAL IV SCH ×3 (05:26→21:49)
[2017-09-21 05:41] LABS: PLATELET COUNT (AUTO) 28 /CMM (150-450)
[2017-09-21 05:42] LABS: CALCIUM, SERUM 7.5 mg/dL (8.5-10.1); CARBON DIOXIDE 28 mmol/L (21-32); CHLORIDE 102 mmol/L (98-107); CREATININE 1.7 mg/dL (0.6-1.3); GLUCOSE 160 mg/dL (74-106); MAGNESIUM 2.3 mg/dL (1.8-2.4); PHOSPHORUS 2.7 mg/dL (2.5-4.9); POTASSIUM 3.7 mmol/L (3.5-5.1); SODIUM SERUM 137 mmol/L (136-145); UREA NITROGEN, BLOOD 34 mg/dL (7-18)
[2017-09-21] MEDS: IV NS 0.9% 1,000 ML IV PRN ×2 (05:52→20:50)
[2017-09-21 05:56] LABS: LYMPHOCYTES % (MANUAL) 2 % (16-48); MONOCYTES % (MANUAL) 4 % (0-11.0); NEUTROPHILS % (MANUAL) 94 (42-76)
--- NOTE | 2017-09-21 06:16 | NUR ---
specialist icu; Patient refused to do Influenza swab, after a long discussion with patient, explained about its very important to check flu, but patient still refused, Charge nurse notified. Will endorse to next shift to discuss with MD.
--- NOTE | 2017-09-21 07:00 | NUR ---
RN NOTES RECEIVED PT ON BED , A/Ox4, ON NON REBREATHER MASK AT 15L , NO DISTRESS NOTED, O2 SAT 94% AT THIS TIME , VSS STABLE , NS AT 75CC/HR RUNNING VIA R UPPER ARM MIDLINE , SITE, CDI, SR UPx3, CALL LIGHT WITHIN EASY REACH, BED LOCKED AND IN LOWEST POSITION , CONTINUE TO MONITOR.
[2017-09-21] MEDS: BLOOD SUGAR DIAGNOSTIC 1 EACH STRIP IN SCH ×5 (07:30→21:50)
[2017-09-21] MEDS: INSULIN ASPART/LISPRO 100 UNIT/ML CARTRIDGE SQ PRN ×3 (07:55→17:03)
[2017-09-21] MEDS: LIPASE/PROTEASE/AMYLASE 1 EACH CAPSULE.DR PO SCH ×3 (08:00→17:03)
[2017-09-21] MEDS: PANTOPRAZOLE 40 MG VIAL IV SCH (08:19)
[2017-09-21] MEDS: NICOTINE PATCH (21MG) 21 MG PATCH.TD24 TD SCH (08:20)
[2017-09-21] MEDS: ALLOPURINOL 100 MG TABLET PO SCH (09:00)
[2017-09-21] MEDS: DICYCLOMINE HCL 10 MG CAPSULE PO SCH ×3 (09:00→16:16)
[2017-09-21] MEDS: LEVETIRACETAM (250 MG) 250 MG TABLET PO SCH ×3 (09:00→16:17)
[2017-09-21] MEDS: GABAPENTIN 300 MG CAPSULE PO SCH ×3 (09:00→16:17)
[2017-09-21] MEDS: MEGESTROL ACETATE 40 MG TABLET PO SCH (09:00)
--- NOTE | 2017-09-21 09:00 | NUR ---
RN NOTES PT DOES NOTE WANT TO TAKE SOME OF HER MORNING MEDS AT THIS TIME .
[2017-09-21] MEDS: Budesonide/Formoterol Fumarate (Symbicort 160-4.5 Mcg In INH SCH ×2 (09:05→16:16)
[2017-09-21 09:24] LABS: INR 1.5 (0.87-1.13); PROTHROMBIN TIME 15.7 SECS (9.5-12.7)
[2017-09-21] MEDS: DOXYCYCLINE HYCLATE (100 MG) 100 MG TABLET PO SCH ×2 (09:33→21:50)
[2017-09-21] MEDS: OSELTAMIVIR PHOSPHATE 75 MG CAPSULE PO SCH ×2 (09:33→16:17)
--- NOTE | 2017-09-21 12:00 | NUR ---
RN NOTES PT REFUSED TUNING AND BE REPOSITION, PHARMACEUTICAL ANALYST AT THE BEDSIDE, NS AT 75CC/HR RUNNING VIA R UPPER ARM PICC LINE , CONTINUE TO MONITOR .
[2017-09-21] MEDS: LEVOFLOXACIN 750 MG /D5W 150ML 750 MG in PREMIX 1 EA IV SCH (12:03)
--- NOTE | 2017-09-21 16:00 | NUR ---
RN NOTES PT DESATURATES TO 86% ON SIMPLE MASK , DR MAIN NOTIFIED, CONTINUE NR MASK AT 15 L .
[2017-09-21] MEDS: CEFEPIME 1 GM in IV D5W 50 ML IV SCH (17:03)
--- NOTE | 2017-09-21 18:30 | NUR ---
RN NOTES PT STABLE , FAMILY AT THE BEDSIDE, BED BATH GIVEN AT THIS TIME PER PT REQUEST, SR UP x3, CALL LIGHT WITHIN EASY REACH, WILL ENDORSE TO TRAFFIC SIGNAL TECHNICIAN NURSE FOR GENEVIEVE.
--- NOTE | 2017-09-21 19:15 | NUR ---
ICU/DIRECTOR CLIENT RECEIVED REPORT FROM DAY NURSE, PT IS ALERTX4. PT IS NON REBREATHER MASK AT 15 LITERS WITH SATURATION AT 93-95%. NO ACUTE RESPIRATORY DISTRESS SEEN AT THIS TIME. PT HAS A FEW SKIN ISSUES THAT ARE ADDRESSED IN FLOW SHEET. CALL LIGHT WITHIN REACH, PT REFUSSED TO BE TURNED. EXPLAIN THE NEED TO DO THIS FREQUENTLY TO PREVENT ANY SKIN BREAK DOWN. HOWEVER PT REFUSED.
--- NOTE | 2017-09-21 20:30 | NUR ---
ICU/DESIGN PRINTING MACHINE SET UP OPERATOR ASSEMBLER SURGICAL GARMENT AT BEDSIDE NOW, ASKED PT IF SHE WANTED TO BE CHANGED AND REPOSITIONED SHE SAID "NO" AND SAID SHE HAD ALREADY BEEN CHANGED.
[2017-09-21] MEDS: Z GUARD REMEDY 2 OZ OINT TP SCH (21:50)
--- NOTE | 2017-09-21 22:10 | NUR ---
ICU/DAMPER MAKER PT'S BLOOD SUGAR 173, PT GETS LEVEMIR FOR THIS HOWEVER PT REFUSED TO HAVE NOW, NUT DID TO HAVE THIS AT @ 2300. CALL LIGHT WITHIN REACH, PT DENIES ANY PAIN AND NO ACUTE DISTRESS SEEN. PT WAS ASKED TO BE TURNED AND REPOSITION FOR COMFORT AND CARE HOWEVER PT AGAIN REUSED TO BE CLEANED UP.
[2017-09-21] MEDS: INSULIN DETEMIR 100 UNIT/ML CARTRIDGE SQ SCH (23:11)
[2017-09-22] VITALS (24 sets, daily range): BP systolic 113–161; BP diastolic 60–101
--- NOTE | 2017-09-22 00:20 | NUR ---
ICU/SHOW JUMPING INSTRUCTOR PT CAREGIVER AT BEDSIDE, ASKED PT TO BE CLEANED AND REPOSITIONED FOR COMFORT AND CARE. HOWEVER PT REFUSED THIS. PT STATED "I'M CLEAN AND NOT DIRTY, NO NEED TO BE CLEANING ME UP ALL THE TIME." CALL LIGHT WITHIN REACH.
[2017-09-22] MEDS: ALBUTEROL FS 2.5 MG/3 ML VIAL.NEB NEB SCH ×4 (00:43→19:38)
[2017-09-22] MEDS: IPRATROPIUM NEB FS 0.5 MG/2.5 ML AMPUL.NEB NEB SCH ×4 (00:43→19:38)
--- NOTE | 2017-09-22 02:20 | NUR ---
ICU/BILINGUAL STUDENT TUTOR PT CAREGIVER AT BEDSIDE.PT WAS ASKED IF OK TO CLEANED AND REPOSITIONED FOR COMFORT AND CARE. HOWEVER PT REFUSED THIS. PT STATED "I'M TRYING TO SLEEP, NO NEED TO BE CLEANING ME UP ALL THE TIME." CALL LIGHT WITHIN REACH, WILL TRY AGAIN LATER
[2017-09-22] MEDS: methylPREDNISolone SOD SUCC 125 MG/2ML VIAL IV SCH ×3 (04:30→21:03)
--- NOTE | 2017-09-22 04:35 | NUR ---
ICU/RESOURCE PROTECTION SPECIALIST PT CAREGIVER AT BEDSIDE. PT WAS ASKED IS IT OK CLEANED AND REPOSITIONED FOR COMFORT AND CARE. HOWEVER PT REFUSED THIS. PT STATED "I'M SLEEPING!" CALL LIGHT WITHIN REACH.
--- NOTE | 2017-09-22 05:50 | NUR ---
ICU/DATA EXAMINATION CLERK AM LABS WERE DRAWN, PT APPEARED TO BE UPSET WHEN DRAWING LABS HOWEVER THERE IS A LINE AND PT DOES NOT HAVE TO BE POKED. PT AGREED.
[2017-09-22 06:18] LABS: BASOPHILS % (AUTO) 0.1 % (0.0-2.0); HEMATOCRIT 31 % (33-45); HEMOGLOBIN 10.6 g/dL (11.5-14.8); LYMPHOCYTES # (AUTO) 0.3 /CMM (0.8-4.8); LYMPHOCYTES % (AUTO) 1.9 % (20.0-44.0); MEAN CORPUSCULAR HEMOGLOBIN 35 PG (26.0-33.0); MEAN CORPUSCULAR HGB CONC 34 g/dl (31.0-36.0); MEAN CORPUSCULAR VOLUME 103 fL (82-100); MONOCYTES # (AUTO) 0.2 /CMM (0.1-1.30); MONOCYTES % (AUTO) 0.9 % (2.0-12.0); NEUTROPHILS # (AUTO) 16.1 /CMM (1.8-8.9); NEUTROPHILS % (AUTO) 97.1 % (43.0-81.0); WHITE BLOOD COUNT (AUTO) 16.6 K/uL (4.3-11.0)
[2017-09-22 06:19] LABS: PLATELET COUNT (AUTO) 15 /CMM (150-450)
--- NOTE | 2017-09-22 06:20 | NUR ---
ICU/ROUGH ROUNDER PT REFUSED AM CARE AND ALSO TO BE TURNED AND REPSOTIONED. CHARGE NURSE IS AWARE OF THIS, WELL PRIMER ASSEMBLER. THROUGH DOCUMENTATION ON PT'S REFUSAL TO BE CLEANED AND TURNED IS DOCUMENTED BY ALL NURSING STAFF.
--- NOTE | 2017-09-22 07:00 | NUR ---
RN NOTES RECEIVED PT ON BED ,A/Ox4, ON NON REBREATHER MASK AT 15 LITERS, O2 SAT 98%, NO RESPIRATORY DISTRESS NOTED AT THIS TIME , ON TELE SR , HR IN 90'S , REFUSED TO BE TURNED AND REPOSITIONED. R UPPER ARM PICC LINE SITE CDI, NS AT 75CC/HR RUNNING , SR UP x3, CALL LIGHT WITHIN EASY REACH. BED LOCKED AND IN LOWEST POSITION , CONTINUE TO MONITOR .
[2017-09-22] MEDS: LIPASE/PROTEASE/AMYLASE 1 EACH CAPSULE.DR PO SCH ×3 (08:00→17:14)
[2017-09-22] MEDS: PANTOPRAZOLE 40 MG VIAL IV SCH (08:11)
[2017-09-22] MEDS: INSULIN ASPART/LISPRO 100 UNIT/ML CARTRIDGE SQ PRN (08:12)
[2017-09-22] MEDS: BLOOD SUGAR DIAGNOSTIC 1 EACH STRIP IN SCH ×4 (08:12→22:13)
[2017-09-22] MEDS: MEGESTROL ACETATE 40 MG TABLET PO SCH (08:13)
[2017-09-22] MEDS: DOXYCYCLINE HYCLATE (100 MG) 100 MG TABLET PO SCH ×2 (08:17→21:03)
[2017-09-22] MEDS: OSELTAMIVIR PHOSPHATE 75 MG CAPSULE PO SCH ×2 (08:17→16:26)
[2017-09-22] MEDS: Z GUARD REMEDY 2 OZ OINT TP SCH (08:23)
[2017-09-22] MEDS: DICYCLOMINE HCL 10 MG CAPSULE PO SCH ×3 (09:00→17:00)
[2017-09-22] MEDS: GABAPENTIN 300 MG CAPSULE PO SCH ×3 (09:00→17:00)
[2017-09-22] MEDS: LEVETIRACETAM (250 MG) 250 MG TABLET PO SCH ×3 (09:00→17:00)
[2017-09-22] MEDS: Budesonide/Formoterol Fumarate (Symbicort 160-4.5 Mcg In INH SCH ×2 (09:00→16:27)
[2017-09-22] MEDS: ALLOPURINOL 100 MG TABLET PO SCH (09:00)
--- NOTE | 2017-09-22 09:00 | NUR ---
RN NOTES DR PLATT NOTIFIED REGARDING PLT=15 . NO ACTIVE BLEEDING NOTED .
[2017-09-22] MEDS: NICOTINE PATCH (21MG) 21 MG PATCH.TD24 TD SCH (09:30)
[2017-09-22 09:31] LABS: LYMPHOCYTES % (MANUAL) 2 % (16-48); MONOCYTES % (MANUAL) 3 % (0-11.0); NEUTROPHILS % (MANUAL) 95 (42-76)
[2017-09-22] MEDS: IV NS 0.9% 1,000 ML IV PRN ×2 (09:32→23:27)
--- NOTE | 2017-09-22 10:52 | NUR ---
RN NOTES DR SORIANO NOTIFIED REGARDING PLT=15, NO NEW ORDER GIVEN .
--- NOTE | 2017-09-22 13:15 | NUR ---
RT UNABLE TO GIVE HHN TX TO PATIENT DO TO HER HIGH OXYGEN REQUIREMENT. PATIENT ON NRB MASK AND DESATURATES RAPIDLY. B/S DIM. PATIENT HAS NO COMPLAINTS OF SOB
--- NOTE | 2017-09-22 15:00 | NUR ---
RN NOTES VSS STABLE , PT REFUSED TO BE TURN AND REPOSITIONED , CARE GIVE AND FAMILY AT THE BEDSIDE, NO DISTRESS NOTED . DR MAIN NOTIFIED REGARDING PLT =15, HEMATOLOGY CONSULT ORDERED . NO ACTIVE BLEEDING NOTED , CONTINUE TO MONITOR
[2017-09-22] MEDS: NYSTATIN (PYXIS) 500,000 UNIT/5 ML ORAL.SUSP PO SCH (16:26)
[2017-09-22] MEDS: CHLORHEXIDINE GLUCONATE 15 ML UDC MM SCH (16:26)
[2017-09-22] MEDS ORDERED: FUROSEMIDE 20 MG/2 ML VIAL IV ONE (16:30)
[2017-09-22] MEDS: CEFEPIME 1 GM in IV D5W 50 ML IV SCH (17:17)
--- NOTE | 2017-09-22 19:00 | NUR ---
RN NOTES PT STABLE , STILL ON NRB MASK AT 15L , NO DISTRESS NOTED, BMx1 , SR UP x3, CALL LIGHT WITHIN EASY REACH, BED LOCKED AND IN LOWEST POSITION , WILL ENDORSE TO MASTER COASTAL WATERS NURSE FOR GENEVIEVE .
[2017-09-22 19:54] LABS: THYROID STIMULATING HORMONE 1.168 uIU/mL (0.358-3.74)
--- NOTE | 2017-09-22 19:55 | NUR ---
ICU/RETAIL BAKERY MANAGER DR. ZUNIGA ON THE CASE ORDERED FIBROGEN LAB, IF LESS THAN 150 TRANSFUSE 10 UNITS CRYO. ORDERS WERE PLACED IN COMPUTER ANS CONSENT SIGNED FOR THIS. LAB CALLED AND NOTIFIED. EXPLAIN THE BENEFITS OF THIS.
--- NOTE | 2017-09-22 20:10 | NUR ---
ICU/FISH HATCHERY INSPECTOR PT COMPLAIN ABOUT SOME PAIN IN THE UPPER CHEST AREA. PT HAD JUST HAD A BREATHING TREATMENT, WAS HAVING PERIODS OF PRODUCTIVE COUGH. SATURATION IS 100% ON CURRENT MASK SETTING. WILL MONITOR THIS PT.
--- NOTE | 2017-09-22 20:50 | NUR ---
ICU/INDIAN BLANKET WEAVER CRITICAL LAB VALUE OF FIBROGEN 68, PUT IN PLACE THE ORDER FOR CRYO IF FIBROGEN LESS THAN 68. CHARGE NURSE AWARE
--- NOTE | 2017-09-22 21:40 | NUR ---
ICU/DESK OPERATOR ACCU CHECK WAS DONE, WAS 322. PT WAS GIVEN HER NIGHTLY LANTUS SQ THEN COVERED WITH THE HUMALOG. WILL CONTINUE TO MONITOR THIS PT'S BLOOD SUGAR
[2017-09-22] MEDS: INSULIN DETEMIR 100 UNIT/ML CARTRIDGE SQ SCH (22:21)
[2017-09-22] MEDS: *INSULIN ASPART NOVOLOG 100 UNIT/ML CARTRIDGE SQ PRN (22:29)
--- NOTE | 2017-09-22 23:10 | NUR ---
ICU/REAL ESTATE ATTORNEY LAB HERE TO TYPE AND CROSS THEN APPLIED BLOOD BAND.
[2017-09-23] VITALS (29 sets, daily range): BP systolic 117–148; BP diastolic 40–92
[2017-09-23] MEDS: IPRATROPIUM NEB FS 0.5 MG/2.5 ML AMPUL.NEB NEB SCH ×4 (01:20→19:51)
[2017-09-23] MEDS: ALBUTEROL FS 2.5 MG/3 ML VIAL.NEB NEB SCH ×4 (01:21→19:51)
--- NOTE | 2017-09-23 02:10 | NUR ---
ICU/ASSOCIATE DIRECTOR FINANCE PT ALLOWED NURSING STAFF TO CLEAN HER UP, PT WAS SOILED WITH YELLOWISH SOFT STOOL. PT WAS CLEANED AND REPOSITIONED FOR COMFORT AND CARE. WILL MONITOR PT.
--- NOTE | 2017-09-23 04:15 | NUR ---
ICU/RAT POISONER 1 OF 2 BAGS OF CRYO STARTED WILL MONITOR THIS PT. CALL LIGHT WITHIN REACH
--- NOTE | 2017-09-23 04:55 | NUR ---
ICU/TIMEKEEPING SUPERVISOR 2 OF 2 BAG OF CRYO FINISHED AND COMPLETED. AM LABS WERE DONE, AWAIT RESULTS.
[2017-09-23] MEDS: methylPREDNISolone SOD SUCC 125 MG/2ML VIAL IV SCH ×3 (05:08→21:10)
[2017-09-23 05:41] LABS: CALCIUM, SERUM 7.6 mg/dL (8.5-10.1); CARBON DIOXIDE 25 mmol/L (21-32); CHLORIDE 106 mmol/L (98-107); CREATININE 1.6 mg/dL (0.6-1.3); GLUCOSE 177 mg/dL (74-106); POTASSIUM 3.3 mmol/L (3.5-5.1); SODIUM SERUM 140 mmol/L (136-145); UREA NITROGEN, BLOOD 32 mg/dL (7-18)
[2017-09-23 06:34] LABS: B-TYPE NATRIURETIC PEPTIDE 28418 PG/ML (0-125)
[2017-09-23 07:35] LABS: INR 1.29 (0.87-1.13); PROTHROMBIN TIME 13.4 SECS (9.5-12.7)
[2017-09-23 07:36] LABS: D-DIMER 22.84 mg/L(FEU (0.17-0.50)
--- NOTE | 2017-09-23 07:40 | NUR ---
TREADLE CUT OFF SAW OPERATOR RECEIVED PATIENT FROM THE PREVIOUS SHIFT. PATIENT IS IN BED. RESTING COMFORTABLY. NO ACUTE DISTRESS ON NON REBREATHER MASK. ALERT AND AWAKE. CAREGIVER AT BEDSIDE. PATIENT NOTED TO DESATURATE RAPIDLY OFF NR DEEPTI. WILL CONTINUE TO MONITOR AND PROVIDE CARE.
--- NOTE | 2017-09-23 07:50 | NUR ---
RT PATIENT ON NRB MASK UNABLE TO TOLERATE HHN TX DUE TO RAPID DESATURATION. JEANCARLOS BRAR
[2017-09-23] MEDS: Z GUARD REMEDY 2 OZ OINT TP SCH (08:46)
[2017-09-23] MEDS: BLOOD SUGAR DIAGNOSTIC 1 EACH STRIP IN SCH ×4 (08:46→21:49)
[2017-09-23] MEDS: NYSTATIN (PYXIS) 500,000 UNIT/5 ML ORAL.SUSP PO SCH ×3 (08:52→17:16)
[2017-09-23] MEDS: OSELTAMIVIR PHOSPHATE 75 MG CAPSULE PO SCH ×2 (08:52→17:16)
[2017-09-23] MEDS: LIPASE/PROTEASE/AMYLASE 1 EACH CAPSULE.DR PO SCH ×3 (08:52→17:13)
[2017-09-23] MEDS: ALLOPURINOL 100 MG TABLET PO SCH (08:52)
[2017-09-23] MEDS: NICOTINE PATCH (21MG) 21 MG PATCH.TD24 TD SCH (08:52)
[2017-09-23] MEDS: MEGESTROL ACETATE 40 MG TABLET PO SCH (08:52)
[2017-09-23] MEDS: DICYCLOMINE HCL 10 MG CAPSULE PO SCH ×3 (08:52→17:00)
[2017-09-23] MEDS: CHLORHEXIDINE GLUCONATE 15 ML UDC MM SCH ×2 (08:52→17:16)
[2017-09-23] MEDS: PANTOPRAZOLE 40 MG VIAL IV SCH (08:52)
[2017-09-23] MEDS: LEVETIRACETAM (250 MG) 250 MG TABLET PO SCH ×3 (08:52→17:16)
[2017-09-23] MEDS: Budesonide/Formoterol Fumarate (Symbicort 160-4.5 Mcg In INH SCH ×2 (08:54→17:00)
[2017-09-23] MEDS: GABAPENTIN 300 MG CAPSULE PO SCH ×3 (08:54→17:00)
[2017-09-23] MEDS: DOXYCYCLINE HYCLATE (100 MG) 100 MG TABLET PO SCH (09:09)
[2017-09-23] MEDS ORDERED: POTASSIUM CHLORIDE 10 MEQ TABLET.SA PO ONE (10:00)
[2017-09-23] MEDS: ONDANSETRON HCL/PF 4 MG/2 ML VIAL IV PRN (10:02)
[2017-09-23] MEDS: LEVOFLOXACIN 750 MG /D5W 150ML 750 MG in PREMIX 1 EA IV SCH (11:53)
--- NOTE | 2017-09-23 11:53 | NUR ---
UPPER TRIMMER PATINET REFUSED PO MEDS TODAY. RN EXPLAINED RISKS AND BENEFITS TO THE PATIENT. HOWEVER PATIENT AGREED TO TAKE PO ANTIBIOTICS AND TAMIFLU AFTER EXPLANATION. PRIMARY MD AWARE.
[2017-09-23] MEDS: IV NS 0.9% 1,000 ML IV PRN (14:07)
--- NOTE | 2017-09-23 14:37 | NUR ---
BUILDING ECONOMIST PATIENT REFUSED TURNING AND REPOSITIONING. RN PROVIDE EDUCATION, RISKS AND BENEFITS. PATIENT VERBALIZED UNDERSTANDING. WILL MONITOR.
--- NOTE | 2017-09-23 16:34 | NUR ---
WINDOWS MOBILE DEVELOPER PATIENT IS IN BED. RESTING COMFORTABLY. PATIENT REFUSED TURNING AND REPOSITIONING AT THIS TIME. AFEBRILE. STABLE VITAL SINGS. TOLERATING NR MASK AT 15L WELL AT THIS TIME. HOB ELEVATED. WILL CONTINUE TO MONITOR AND PROVIDE CARE.
[2017-09-23] MEDS ORDERED: FEE PK DOSING 1 MIN EA MC ONE (16:37)
[2017-09-23] MEDS ORDERED: MICAFUNGIN SODIUM 100 MG in IV NS 0.9% 100 ML IV SCH ×2 (17:00→20:00)
[2017-09-23] MEDS: VANCOMYCIN 0.75 GM in IV D5W 250 ML IV SCH (18:44)
[2017-09-23 19:33] LABS: HEMATOCRIT 30 % (33-45); HEMOGLOBIN 10.2 g/dL (11.5-14.8); LYMPHOCYTES # (AUTO) 0.4 /CMM (0.8-4.8); LYMPHOCYTES % (AUTO) 1.9 % (20.0-44.0); MEAN CORPUSCULAR HEMOGLOBIN 35 PG (26.0-33.0); MEAN CORPUSCULAR HGB CONC 34 g/dl (31.0-36.0); MEAN CORPUSCULAR VOLUME 105 fL (82-100); MONOCYTES # (AUTO) 0.2 /CMM (0.1-1.30); MONOCYTES % (AUTO) 0.8 % (2.0-12.0); NEUTROPHILS % (AUTO) 97.3 % (43.0-81.0); RDW COEFFICIENT OF VARIATION 13.1 (11.5-15.0); RED BLOOD CELL COUNT(AUTO) 2.91 MIL/uL (4.0-5.2); WHITE BLOOD COUNT (AUTO) 22.6 K/uL (4.3-11.0)
--- NOTE | 2017-09-23 20:00 | NUR ---
Received patient awake alert and oriented x 3.VS Stable.ST 108.Tachypneic RR 28-30. Diminished breath sounds.Patient on 15 % NRB mask.Saturating 94%.Encouraged to cough and deep breath.Incontinent of urine.Kept clean and dry diaper changed.NPO with IVF infusing. Continue monitoring.
[2017-09-23] MEDS ORDERED: MEROPENEM 500 MG in IV NS 0.9% 50 ML IV SCH (21:00)
[2017-09-23 21:01] LABS: PLATELET COUNT (AUTO) 17 /CMM (150-450)
[2017-09-23 21:06] LABS: BAND % (MANUAL) 3 % (0.0-5.0); LYMPHOCYTES % (MANUAL) 13 % (16-48); METAMYELOCYTES % 1 % (0-0); MONOCYTES % (MANUAL) 2 % (0-11.0); NEUTROPHILS % (MANUAL) 81 (42-76)
[2017-09-23] MEDS: MEROPENEM 500 MG in IV NS 0.9% 50 ML IV SCH (21:10)
[2017-09-23] MEDS: INSULIN DETEMIR 100 UNIT/ML CARTRIDGE SQ SCH (21:51)
[2017-09-23] MEDS: *INSULIN ASPART NOVOLOG 100 UNIT/ML CARTRIDGE SQ PRN (21:54)
--- NOTE | 2017-09-23 21:54 | NUR ---
PT PLACED ON BIPAP PER HER REQUEST. PT SHORT OF BREATH. RN NOTIFIED. WILL CONTINUE TO MONITOR. Addendum: 09/23/17 at 2156 by SOFYA AG RT Amended: Links added.
--- NOTE | 2017-09-23 21:55 | NUR ---
Patient BS 272 patient refused Novolog sliding scale.Agreed to have Evening dose of Levemir. Patient very anxious,tachypneic and tachycardic 150.Encouraged to relax and deep breath. Bipap applied by RT,Erick rate 20,15/5,100% as requested by patient.
--- NOTE | 2017-09-23 22:00 | NUR ---
PRN Ultram administered for generalized pain.Continue monitoring.
[2017-09-23 23:48] LABS: ABG BASE EXCESS -15.7 mmol/L; ABG OXYGEN SATURATION 60.8 % (92.0-98.5); ABG PCO2 47.2 mmHg (35.0-45.0); ABG PH 7.084 (7.350-7.450); ABG PO2 44.6 mmHg (75.0-100.0); AaDO2 621.2 mmHg; COHb 0.1 % (0.5-1.5); MetHb 0.5 % (0.0-1.5); O2Hb 60.4 % (94.0-97.0); SITE, ABG Left Radial
[2017-09-24] VITALS (57 sets, daily range): BP systolic 38–125; BP diastolic 16–90
--- NOTE | 2017-09-24 00:06 | NUR ---
STAT ABG DONE. NOTIFIED RN AND CHARGE WITH THE CRITICAL RESULT.
[2017-09-24] MEDS ORDERED: SODIUM BICARBONATE SYR 50 MEQ/50 ML DISP.SYRIN ONE ×3 (00:23→00:36)
[2017-09-24] MEDS ORDERED: SODIUM BICARBONATE SYR 50 MEQ/50 ML DISP.SYRIN IV ONE ×3 (00:30→20:51)
--- NOTE | 2017-09-24 00:50 | NUR ---
@[address] GRUBBS. 7.5 ETT SECURED AT 22CM AT THE LIP GOOD COLOR CHANGE ON CO2 DETECTOR. EQUAL CHEST RISE, BILAT BREATH SOUND. PLACED ON AC 16, 450, 100%, +5. VENT ALARMS SET AND AUDIBLE. AMBU BAG AT HOB. VENT PLUGGED INTO RED OUTLET. WILL CONTINUE TO MONITOR. Addendum: 09/24/17 at 0055 by SOFYA AG RT Amended: Links added.
[2017-09-24] MEDS: Sodium Bicarbonate 100 MEQ in IV D5W 1,000 ML IV SCH ×2 (00:54→13:32)
[2017-09-24] MEDS: IPRATROPIUM NEB FS 0.5 MG/2.5 ML AMPUL.NEB NEB SCH ×3 (01:14→12:51)
[2017-09-24] MEDS: ALBUTEROL FS 2.5 MG/3 ML VIAL.NEB NEB SCH ×3 (01:15→12:51)
[2017-09-24] MEDS ORDERED: PROPOFOL 100 ML ONE (01:22)
[2017-09-24] MEDS: PROPOFOL 100 ML IV PRN ×2 (01:26→13:31)
[2017-09-24 02:09] LABS: ABG BASE EXCESS -13.4 mmol/L; ABG PCO2 30.1 mmHg (35.0-45.0); ABG PH 7.241 (7.350-7.450); ABG PO2 66.4 mmHg (75.0-100.0); AaDO2 616.5 mmHg; COHb 0.3 % (0.5-1.5); MetHb 0.7 % (0.0-1.5); O2Hb 87.1 % (94.0-97.0); PEEP,BG 5 cm H2O; SITE, ABG Left Radial
--- NOTE | 2017-09-24 02:10 | NUR ---
POST INTUBATION ABG RESULT PH 7.24, CO2 30, PaO2 66, HCO3 12 AC 16, 450, 100%, +5. NOTIFIED RN WITH THE RESULT.
--- NOTE | 2017-09-24 02:25 | NUR ---
Called AB'S results @ 0205 to covering for .Orders received. Hands Assembler,Michael made aware no available Sodium Bicarb in ICU,ED,JB and 3 WEST.To call pharmacy bakery demonstrator.
--- NOTE | 2017-09-24 04:00 | NUR ---
Patient hypotensive SBP 60's -70's. paged 3x by gambling monitor Semaj No response.facility supervisor Shama notified.She said to call for orders.
--- NOTE | 2017-09-24 04:15 | NUR ---
Charge Nurse MANISHA,T.called and updated of patient status.Orders received and carried out.
[2017-09-24] MEDS ORDERED: NOREPINEPHRINE 4 MG/4 ML AMPUL IV ONE (04:16)
[2017-09-24] MEDS ORDERED: IV NS 0.9% 250 ML IV ONE (04:30)
[2017-09-24] MEDS: NOREPINEPHRINE 16 MG in IV D5W 500 ML IV PRN ×2 (04:31→14:58)
[2017-09-24 05:07] LABS: HEMATOCRIT 30 % (33-45); LYMPHOCYTES # (AUTO) 0.3 /CMM (0.8-4.8); LYMPHOCYTES % (AUTO) 0.9 % (20.0-44.0); MEAN CORPUSCULAR HEMOGLOBIN 35 PG (26.0-33.0); MEAN CORPUSCULAR HGB CONC 33 g/dl (31.0-36.0); MEAN CORPUSCULAR VOLUME 105 fL (82-100); MONOCYTES % (AUTO) 0.1 % (2.0-12.0); NEUTROPHILS # (AUTO) 36.1 /CMM (1.8-8.9); RED BLOOD CELL COUNT(AUTO) 2.89 MIL/uL (4.0-5.2)
[2017-09-24 05:18] LABS: CALCIUM, SERUM 7.4 mg/dL (8.5-10.1); CARBON DIOXIDE 15 mmol/L (21-32); CHLORIDE 104 mmol/L (98-107); CREATININE 2.2 mg/dL (0.6-1.3); GLUCOSE 205 mg/dL (74-106); POTASSIUM 4.6 mmol/L (3.5-5.1); SODIUM SERUM 143 mmol/L (136-145); UREA NITROGEN, BLOOD 37 mg/dL (7-18)
--- NOTE | 2017-09-24 05:20 | NUR ---
OFFICE CLIN ASST PT WAS TRANSFERRED FROM [facility] WITH DIAGNOSIS RESPIRATORY FAILURE, CHF, COPD. PT WAS CONFUSED, DISORIENTED, DIAPHORETIC, WITH O2 SAT 80'S AND RR 35. STAT INTUBATION DONE. PT WAS PLACED ON VENTILATOR AC 18, TV 550, FIO2-100%, PEEP 5. ABG AFTER INTUBATION- PH 7.4, CO2-31, O2-269, HCO3-24. FIO2 REDUSED TO 60%. BILATERAL CRACKLES & RHONCHI. MODERATE AMT. OF BLOODY TINGED SECRETION. PT WAS VERY AGITATED, TRYING TO PULL OUT TUBES. SOFT WRIST RESTRAINTS ON. STARTED PROPOFOL DRIP. INSERTED F/C. STARTED SECOND IV- LEFT EXTERNAL JUGULAR VEIN # 18. URINE OUTPUT IS LARGE. PT WAS GIVEN LASIX IV BEFORE. SCOPE-SR-ST WITH PVC'S. SKIN IS JAUNDICE. HUGE SKIN HEMATOMA ON ABDOMEN. /PT IS ON COUMADIN 5 MG PO DAILY/. WILL CONTINUE CLOSE MONITORING Addendum: 09/24/17 at 0700 by VITA OQUENDO RN Please disregard above notes.It belongs to another patient.Wrong entry.
[2017-09-24 05:27] LABS: PLATELET COUNT (AUTO) 19 /CMM (150-450); WHITE BLOOD COUNT (AUTO) 36.4 K/uL (4.3-11.0)
[2017-09-24] MEDS: methylPREDNISolone SOD SUCC 125 MG/2ML VIAL IV SCH ×2 (05:31→13:00)
[2017-09-24 05:47] LABS: BAND % (MANUAL) 6 % (0.0-5.0); LYMPHOCYTES % (MANUAL) 2 % (16-48); MONOCYTES % (MANUAL) 2 % (0-11.0); NEUTROPHILS % (MANUAL) 90 (42-76)
[2017-09-24 05:48] LABS: PLATELET COUNT (AUTO) 19 /CMM (150-450)
[2017-09-24 05:49] LABS: PARTIAL THROMBOPLASTIN TIME 31 SEC (23-34)
[2017-09-24 05:51] LABS: FIBRINOGEN ACTIVITY 73 Mg/dL (213-485)
[2017-09-24 06:08] LABS: D-DIMER > 35.20 mg/L(FEU (0.17-0.50)
--- NOTE | 2017-09-24 07:10 | NUR ---
Patient sedated on Diprivan Drip at 5 mcg and Levophed drip infusing at 5 mcg/min and Bicarb drip all infusing via sherlyn Picc line.Site intact.No acute distress noted.Report given to incoming RN.
[2017-09-24 07:33] LABS: ABG BASE EXCESS -16.7 mmol/L; ABG OXYGEN SATURATION 89.2 % (92.0-98.5); ABG PCO2 36.5 mmHg (35.0-45.0); ABG PH 7.122 (7.350-7.450); ABG PO2 73.8 mmHg (75.0-100.0); AaDO2 602.7 mmHg; COHb 0.3 % (0.5-1.5); MetHb 0.6 % (0.0-1.5); O2Hb 88.4 % (94.0-97.0); SITE, ABG Left Radial
--- NOTE | 2017-09-24 07:36 | NUR ---
ENTRY SPECIALISTS RECEIVED PATIENT FROM THE PREVIOUS SHIFT. ORALLY INTUBATED. VENT SETTINGS REVIEWED AND VERIFIED. SEDATED ON DIPRIVAN. LEVOPHED FOR BP SUPPORT. 100% FIO2. FAMILY AWARE. WILL CONTINUE TO MONITOR.
[2017-09-24] MEDS ORDERED: SODIUM BICARBONATE SYR 50 MEQ/50 ML DISP.SYRIN IV STA (07:49)
[2017-09-24] MEDS: LIPASE/PROTEASE/AMYLASE 1 EACH CAPSULE.DR PO SCH ×3 (08:00→17:18)
--- NOTE | 2017-09-24 08:02 | NUR ---
LABORATORY TECH UNABLE TO TURN AND REPOSITION THE PATIENT DUE TO HEMODYNAMIC INSTABILITY. FIO2 100% ON VENT. LEVOPHED GTT AT 20 MCG/KG/MIN.
[2017-09-24 08:08] LABS: IMMUNOGLOBULIN A, SERUM 369 mg/dL (64-422); IMMUNOGLOBULIN G, SERUM 705 mg/dL (700-1600); IMMUNOGLOBULIN M, SERUM 107 mg/dL (26-217)
[2017-09-24] MEDS ORDERED: ETOMIDATE 2 MG/ML VIAL IV ONE (08:13)
[2017-09-24] MEDS: Budesonide/Formoterol Fumarate (Symbicort 160-4.5 Mcg In INH SCH ×2 (09:00→16:59)
[2017-09-24] MEDS: NICOTINE PATCH (21MG) 21 MG PATCH.TD24 TD SCH (09:00)
[2017-09-24] MEDS: BLOOD SUGAR DIAGNOSTIC 1 EACH STRIP IN SCH ×3 (09:41→17:15)
[2017-09-24] MEDS: Z GUARD REMEDY 2 OZ OINT TP SCH (09:45)
[2017-09-24] MEDS: LEVETIRACETAM (250 MG) 250 MG TABLET PO SCH ×3 (09:50→16:59)
[2017-09-24] MEDS: PANTOPRAZOLE 40 MG VIAL IV SCH (09:50)
[2017-09-24] MEDS: OSELTAMIVIR PHOSPHATE 75 MG CAPSULE PO SCH ×2 (09:50→16:59)
[2017-09-24] MEDS: GABAPENTIN 300 MG CAPSULE PO SCH ×3 (09:50→16:58)
[2017-09-24] MEDS: MEGESTROL ACETATE 40 MG TABLET PO SCH (09:50)
[2017-09-24] MEDS: CHLORHEXIDINE GLUCONATE 15 ML UDC MM SCH ×2 (09:50→16:59)
[2017-09-24] MEDS: NYSTATIN (PYXIS) 500,000 UNIT/5 ML ORAL.SUSP PO SCH ×3 (09:50→16:58)
[2017-09-24] MEDS: MEROPENEM 500 MG in IV NS 0.9% 50 ML IV SCH (09:51)
[2017-09-24] MEDS: ALLOPURINOL 100 MG TABLET PO SCH (09:51)
[2017-09-24] MEDS: DICYCLOMINE HCL 10 MG CAPSULE PO SCH ×3 (09:51→16:58)
[2017-09-24 10:06] LABS: ABG BASE EXCESS -10.9 mmol/L; ABG OXYGEN SATURATION 97.6 % (92.0-98.5); ABG PCO2 27.4 mmHg (35.0-45.0); ABG PH 7.321 (7.350-7.450); ABG PO2 151.8 mmHg (75.0-100.0); AaDO2 533.8 mmHg; COHb 0.3 % (0.5-1.5); MetHb 0.6 % (0.0-1.5); O2Hb 96.7 % (94.0-97.0); SITE, ABG Left Radial
--- NOTE | 2017-09-24 11:07 | NUR ---
RT FIO2 TITRATED TO 60% POST ABG RESULTS. JEANCARLOS PRINCE AWARE Addendum: 09/24/17 at 1108 by ABELINO DUNN RT Amended: Links added.
--- NOTE | 2017-09-24 12:04 | NUR ---
REHANGER UNABLE TO TURN AND REPOSITION THE PATIENT DUE TO HEMODYNAMIC INSTABILITY. FIO2 100% ON VENT. LEVOPHED GTT AT 20 MCG/KG/MIN.
[2017-09-24] MEDS: PHENYLEPHRINE 80 MG in IV D5W 250 ML IV PRN ×2 (13:02→18:29)
--- NOTE | 2017-09-24 13:44 | NUR ---
PERCUSSION INSTRUCTOR UNABLE TO TURN AND REPOSITION THE PATIENT DUE TO HEMODYNAMIC INSTABILITY. FIO2 100% ON VENT. LEVOPHED GTT AT 20 MCG/KG/MIN.
[2017-09-24] MEDS ORDERED: PROPOFOL 10MG/ML 50ML 50 ML IV PRN (14:00)
--- NOTE | 2017-09-24 15:17 | NUR ---
RT PER DR IZAGUIRRE PATIENT PLACED ON 100% AND PEEP TO ZERO. Addendum: 09/24/17 at 1518 by ABELINO DUNN RT Amended: Links added.
--- NOTE | 2017-09-24 15:34 | NUR ---
RUG REPAIRER PATIENT IS NOW MAX ON TWO PRESSORS. SEDATION AT MAX 100MCG/KG/MIN PER PRACTICE MANAGEMENT CONSULTANT RECOMMENDATION. TEMP 100.4. BICARB GTT IS RUNNING. TACHYCARDIC AT 144. RN INFORMED PRACTICE MANAGEMENT CONSULTANT REGARDING ASSESSMENT FINDINGS. RECEIVED PRACTICE MANAGEMENT CONSULTANT RECOMMENDATIONS TO HOLD CRYOPRECIPITATE DUE TO INCREASED HEMODYNAMIC INSTABILITY. PATIENT'S SON IS AT BEDSIDE AT THIS TIME. RN INFORMED SON REGARDING PATIENT'S INCREASED HEMODYNAMIC INSTABILITY.
[2017-09-24] MEDS ORDERED: IV NS 0.9% 500 ML IV ONE (16:30)
[2017-09-24] MEDS ORDERED: VASOPRESSIN INJ 50 UNIT in IV D5W 497.5 ML IV PRN (16:30)
--- NOTE | 2017-09-24 17:30 | NUR ---
PENETRATION TESTER RN MADE COAT IRONER HAND AWARE OF PATIENT'S CURRENT CONDITION. RECEIVED ORDERS FOR VASOPRESSIN BUT NO 4TH PRESSOR. FAMILY AT BEDSIDE. RN FACILITATED A PHONE CALL BETWEEN THE LICENSED PSYCHIATRIC TECHNICIAN AND PATIENT'S BROTHER IN [place]. PATIENT IS NOW ON FULL VENT SETTINGS, MAXED ON THREE PRESSORS, AND ON A BICARB GTT. LICENSED PSYCHIATRIC TECHNICIAN AWARE THAT IT IS UNABLE TO GET A CVP AT THIS TIME SINCE ALL PORTS OF THE PICC LINE ARE BEING USED.
[2017-09-24] MEDS: VANCOMYCIN 0.75 GM in IV D5W 250 ML IV SCH (19:11)
--- NOTE | 2017-09-24 19:45 | NUR ---
PT RECEIVED IN BED INTUBATED, MAXED OUT ON 3 PRESSORS: LEVO, SOPHIA, VASO AND ON BICARB DRIP 2 AMPS IN 1000 ML D5W @ 75 ML/HR. PT ON ABX, VENT SETTINGS SEE FLOWSHEET 100% FI02. PT IS IN ACUTE RENAL FAILURE, NGT CLAMPED. PT HAS VANNESA PICC LINE. WILL CONTINUE TO MONITOR
--- NOTE | 2017-09-24 20:10 | NUR ---
PT HR 50S, BP UNREADABLE, NO PULSE ON PALPATION, NO PULSE WITH DOPPLER, CODE BLUE CALLED, CPR STARTED, SEE CODE BLUE SHEET.
--- NOTE | 2017-09-24 20:50 | NUR ---
SON ASKED IF HE WANTED TO TAKE PT MEDICATIONS HOME RIGHT NOW, HE REFUSED TO TAKE MEDS HOME NOW, HE SAID HE WOULD DEAL WITH IT TOMORROW.
[2017-09-24] MEDS ORDERED: AMIODARONE 150 MG/3 ML VIAL IV ONE (20:51)
[2017-09-24] MEDS ORDERED: FEE EMEERGENCY 1 MIN EA MC ONE (20:51)
[2017-09-24] MEDS ORDERED: EPINEPHRINE (1:10,000) SYRINGE 1 MG/10 ML DISP.SYRIN IVP ONE (20:51)
[2017-09-24 23:08] LABS: *MYCOPLASMA PNEUMONIAE IgG <100 U/mL (0-99); *MYCOPLASMA PNEUMONIAE IgM <770 U/mL (0-769)
[2017-09-28 06:08] LABS: *SPE A/G RATIO 0.8 (0.7-1.7); *SPE ALBUMIN 2.1 g/dL (2.9-4.4); *SPE ALPHA-1-GLOBULIN 0.3 g/dL (0.0-0.4); *SPE ALPHA-2-GLOBULIN 0.8 g/dL (0.4-1.0); *SPE BETA GLOBULIN 0.7 g/dL (0.7-1.3); *SPE GLOBULIN, TOTAL 2.7 g/dL (2.2-3.9); *SPE M-SPIKE Not Observed g/dL (Not Observed); *SPEGAMMA GLOBULIN 0.9 g/dL (0.4-1.8)
== END 2017-09-24 20:39 | disposition expired | DRG 871 ==
LOC: ER 17:15 → ICU 20:23
PROVIDERS: ADMIT Family Medicine; ATTEND Family Medicine
PROC: 5A09357 Assistance with Respiratory Ventilation, Less than 24 Consecutive Hours, Continuous Positive Airway Pressure (ICD-10-PCS; principal; 2017-09-17)
PROC: 02HV33Z Insertion of Infusion Device into Superior Vena Cava, Percutaneous Approach (ICD-10-PCS; 2017-09-19)
PROC: B548ZZA Ultrasonography of Superior Vena Cava, Guidance (ICD-10-PCS; 2017-09-19)
PROC: 30233M1 Transfusion of Nonautologous Plasma Cryoprecipitate into Peripheral Vein, Percutaneous Approach (ICD-10-PCS; 2017-09-22)
PROC: 0BH17EZ Insertion of Endotracheal Airway into Trachea, Via Natural or Artificial Opening (ICD-10-PCS; 2017-09-24)
PROC: 5A1945Z Respiratory Ventilation, 24-96 Consecutive Hours (ICD-10-PCS; 2017-09-24)
PROC: 5A2204Z Restoration of Cardiac Rhythm, Single (ICD-10-PCS; 2017-09-24)
DX: A41.9 Sepsis, unspecified organism (principal); J96.01 Acute respiratory failure with hypoxia; D65 Disseminated intravascular coagulation [defibrination syndrome]; I46.9 Cardiac arrest, cause unspecified; A48.1 Legionnaires' disease; K85.90 Acute pancreatitis without necrosis or infection, unspecified; R65.21 Severe sepsis with septic shock; D61.818 Other pancytopenia; N17.9 Acute kidney failure, unspecified; E87.2 Acidosis; N39.0 Urinary tract infection, site not specified; E11.22 Type 2 diabetes mellitus with diabetic chronic kidney disease; E11.65 Type 2 diabetes mellitus with hyperglycemia; Z90.49 Acquired absence of other specified parts of digestive tract; Z88.0 Allergy status to penicillin; Z87.01 Personal history of pneumonia (recurrent); Z86.73 Personal history of transient ischemic attack (TIA), and cerebral infarction without residual deficits; M41.9 Scoliosis, unspecified; Z88.1 Allergy status to other antibiotic agents; Z88.5 Allergy status to narcotic agent; Z88.8 Allergy status to other drugs, medicaments and biological substances; Z91.048 Other nonmedicinal substance allergy status; Z79.4 Long term (current) use of insulin; Z79.899 Other long term (current) drug therapy; Z79.82 Long term (current) use of aspirin; I12.9 Hypertensive chronic kidney disease with stage 1 through stage 4 chronic kidney disease, or unspecified chronic kidney disease; N18.9 Chronic kidney disease, unspecified; G40.909 Epilepsy, unspecified, not intractable, without status epilepticus; E87.70 Fluid overload, unspecified; Z79.51 Long term (current) use of inhaled steroids; Z83.3 Family history of diabetes mellitus; Z82.49 Family history of ischemic heart disease and other diseases of the circulatory system; I25.10 Atherosclerotic heart disease of native coronary artery without angina pectoris; E88.09 Other disorders of plasma-protein metabolism, not elsewhere classified
CPT/HCPCS: 31720; 36415; 36569; 36600; 71010-TC; 71045-TC; 78582; 80048-TC; 80076-TC; 80202-TC; 81000-TC; 82010-TC; 82247-TC; 82248-TC; 82728-TC; 82746; 82784; 82803-TC; 82962-TC; 83540-TC; 83605-TC; 83735-TC; 83880; 84100-TC; 84155; 84165; 84443-TC; 84484-TC; 85025-TC; 85385-TC; 85396; 85730-TC; 86334; 86713; 86738; 86850-TC; 87040-TC; 87081-TC; 87086-TC; 87400; 92950-TC; 93307-TC; 94002-TC; 94660; 94762-TC; 94799-TC; A4216; A4606; A9540; A9567; C1751; C9113; J0171; J0282; J0692; J1815; J1940; J1956; J2185; J2248; J2370; J2405; J2920; J2930; J3370; J3475; J3480; J3490; J7030; J7040; J7050; J7060; J7070; P9012; Q0162